=== PATIENT | male | born 1950 | race American Indian/Alaskan Native ===

== ENCOUNTER 2016-08-27 17:04 | Inpatient (IN) | payer MEDICARE ==
[2016-08-27] MEDS ORDERED: VANCOMYCIN/NS 1 GM/250 ML 1 GM/250 ML BAG IV ONE (18:20)
--- NOTE | 2016-08-27 18:23 | Emergency Department Report ---
HPI - General Chief Complaint: Wound/Laceration Time Seen by Provider: 08/27/16 17:51 - HPI HPI: This is a 66-year-old Afro-Burmese male who presents to the emergency department from home by EMS with complaint of a wound to the left lower extremity, to the outside ankle, that has been getting worse and is possibly noninfected. It is more of a chronic issue for him and he was getting wound care for a while but then his was having to clean and change the wound. More recently it started to increase its drainage with malodorous discharge from the wound. He also complains of a one-day history of right lower extremity swelling. He has a history of right below-knee amputation. He also has a past medical history of CVA, dementia, diabetes, hypertension, chronic kidney disease. He has not taken anything for his symptoms prior to presentation. No recent travel or sick contacts at home. ED Past Medical Hx - Past Medical History Previous Medical History?: Yes Hx Hypertension: Yes Hx CVA: Yes Hx Heart Attack/AMI: No Hx Congestive Heart Failure: No Hx Diabetes: Yes Hx Deep Vein Thrombosis: No Hx Pulmonary Embolism: No Hx GERD: No Hx Liver Disease: No Hx Renal Disease: Yes Hx of Cancer: No Hx Sickle Cell Disease: No Hx Arthritis: No Hx Headaches / Migraines: No Hx Seizures: No Hx Kidney Stones: No Hx Psychiatric Treatment: No Hx Asthma: No Hx COPD: No Hx Tuberculosis: No Hx Dementia: Yes Hx HIV: No Additional medical history: Pt has unhealed wound to Left foot, oozing and foul smell, drainage of yellow/green color,. Right BKA - Surgical History Past Surgical History?: Yes Hx Coronary Stent: No Hx Open Heart Surgery: No Hx Pacemaker: No Hx Internal Defibrillator: No Hx Cholecystectomy: No Hx Appendectomy: No Hx Breast Surgery: No - Social History Smoking Status: Former Smoker Substance Use Type: None - Medications Home Medications: Home Medications Medication Instructions Recorded Confirmed Last Taken Type Aspirin [Adult Low Dose Aspirin EC] 81 mg PO QDAY 08/27/16 08/27/16 Unknown History Cholecalciferol (Vitamin D3) 1 cap PO QDAY 08/27/16 08/27/16 Unknown History [Vitamin D3 2,000 unit] Clonidine HCl [Catapres] 0.3 mg PO TID 08/27/16 08/27/16 Unknown History Clopidogrel Bisulfate [Plavix] 75 mg PO QDAY 08/27/16 08/27/16 Unknown History ISOSORBIDE MONOnitrate [Imdur ER] 60 mg PO QAM 08/27/16 08/27/16 Unknown History Insulin NPH Hum/Reg Insulin Hm 30 unit SC BID 08/27/16 08/27/16 Unknown History [HumuLIN 70-30 Vial] Lisinopril [Zestril TAB] 20 mg PO BID 08/27/16 08/27/16 Unknown History Metoprolol [Lopressor TAB] 50 mg PO BID 08/27/16 08/27/16 Unknown History Simvastatin [Zocor TAB] 20 mg PO QDAY 08/27/16 08/27/16 Unknown History amLODIPine [Norvasc] 10 mg PO QDAY 08/27/16 08/27/16 Unknown History hydrALAZINE [Apresoline TAB] 20 mg PO TID 08/27/16 08/27/16 Unknown History ED Review of Systems ROS: Stated complaint: NECROTIC WOUND Other details as noted in HPI Comment: All other systems reviewed and negative Constitutional: denies: chills, fever Eyes: denies: eye pain, eye discharge, vision change ENT: denies: ear pain, throat pain Respiratory: denies: cough, shortness of breath, wheezing Cardiovascular: edema. denies: chest pain, palpitations Gastrointestinal: denies: abdominal pain, nausea, diarrhea Genitourinary: denies: urgency, dysuria Musculoskeletal: joint swelling. denies: back pain Skin: lesions. denies: pruritus Neurological: denies: headache, weakness, paresthesias Physical Exam - Physical Exam Vital Signs: Vital Signs 08/27/16 08/27/16 08/27/16 17:14 17:15 17:16 Pulse Rate 80 81 78 Respiratory 16 12 15 Rate Blood Pressure 141/45 141/45 O2 Sat by Pulse 95 95 97 Oximetry 08/27/16 08/27/16 08/27/16 17:18 17:20 17:22 Pulse Rate 76 79 78 Respiratory 19 13 12 Rate Blood Pressure 141/45 141/45 141/45 O2 Sat by Pulse 96 96 97 Oximetry 08/27/16 08/27/16 08/27/16 17:24 17:26 17:40 Pulse Rate 76 76 Respiratory 17 19 Rate Blood Pressure 141/45 141/45 O2 Sat by Pulse 96 98 99 Oximetry Physical Exam: GENERAL: The patient is well-developed well-nourished. HEENT: Normocephalic. Atraumatic. Extraocular motions are intact. Patient has moist mucous membranes. Pupils equal reactive to light bilaterally. NECK: Supple. Trachea is midline. CHEST/LUNGS: Clear to auscultation. There is no respiratory distress noted. HEART/CARDIOVASCULAR: Regular. There is no tachycardia. There is no gallop rub or murmur. ABDOMEN: Skin is warm and dry. SKIN: There is a moderate sized stage III ulceration to the left lower leg to the posterior foot just inferior and posterior to the lateral malleolus that is about 4-5 inches in diameter. It has some malodorous brownish bruising and/or discharge. No surrounding erythema. Onychomycosis of the toenails. NEURO: The patient is awake, alert, and oriented. The patient is cooperative. The patient has no focal neurologic deficits. The patient has normal speech. MUSCULOSKELETAL: There is no tenderness or deformity. There is a chronic right below-knee amputation. Palpable dorsalis pedis on the left. ED Course Vital Signs 08/27/16 08/27/16 08/27/16 17:14 17:15 17:16 Pulse Rate 80 81 78 Respiratory 16 12 15 Rate Blood Pressure 141/45 141/45 O2 Sat by Pulse 95 95 97 Oximetry 08/27/16 08/27/16 08/27/16 17:18 17:20 17:22 Pulse Rate 76 79 78 Respiratory 19 13 12 Rate Blood Pressure 141/45 141/45 141/45 O2 Sat by Pulse 96 96 97 Oximetry 08/27/16 08/27/16 08/27/16 17:24 17:26 17:40 Pulse Rate 76 76 Respiratory 17 19 Rate Blood Pressure 141/45 141/45 O2 Sat by Pulse 96 98 99 Oximetry - Consultations Consultation #1: I spoke to the orthopedist business applications specialist, Dr. Soto, who has agreed to follow this patient for his suspected osteomyelitis. He does not have any preference for antibiotics and would like the patient admitted to the hospitalist service. 08/28/16 00:04 ED Medical Decision Making - Lab Data Result diagrams: 08/27/16 18:34 08/27/16 18:34 - Radiology Data Radiology results: report reviewed, image reviewed interpreted by me: Chest x-ray does not show any acute process. X-ray of the ankle shows diffuse soft tissue swelling. There is slightly irregular contour in the soft tissues over the lateral aspect of the ankle which could indicate ulceration. The cortex of the lateral aspect of the lateral malleolus is indistinct. Possibility of osteomyelitis is not excluded. CT of the left lower extremity shows soft tissue ulceration adjacent to the lateral malleolus. There is indistinct appearance to the cortex in the lateral malleolus with subtle sclerotic changes in the adjacent bone. This is suspicious for osteomyelitis. Diffuse subcutaneous edema. - Medical Decision Making 66-year-old male with a history of a chronic left lower extremity ulceration and wound who presents when this appears to become infected with malodorous discharge. Patient's labs are mostly unremarkable including no leukocytosis or lactic acidosis. However x-ray imaging of the ankle shows concern for possibility of osteomyelitis to the lateral malleolus. A CT was then done that showed more suspicion for osteomyelitis versus possibility. Patient started on vancomycin and will be admitted to the hospital. Accepted for admission by the hospitalist, Dr. Campbell. - Differential Diagnosis osteomyelitis, diabetic ulcer, cellulitis, sepsis Critical Care Time: No Critical care attestation.: If time is entered above; I have spent that time in minutes in the direct care of this critically ill patient, excluding procedure time. ED Disposition Clinical Impression: Osteomyelitis of ankle Qualifiers: Osteomyelitis type: unspecified type Laterality: left Qualified Code(s): M86.9 - Osteomyelitis, unspecified Lower limb ulcer Qualifiers: Laterality: left Non-pressure ulcer stage: unspecified non-pressure ulcer stage Qualified Code(s): L97.929 - Non-pressure chronic ulcer of unspecified part of left lower leg with unspecified severity Disposition: OP ADMIT IP TO THIS HOSP Is pt being admited?: Yes Condition: Fair Time of Disposition: 00:07
[2016-08-27] MEDS ORDERED: NACL 0.9% 500 ML 500 ML IV ONE (18:32)
[2016-08-27 18:53] LABS: Basophils % (Auto) 0.3 % (0.0-1.8); Eosinophils % (Auto) 1.9 % (0.0-4.3); Hematocrit 25.6 % (35.5-45.6); Hemoglobin 8.3 gm/dl (11.8-15.2); Mean Corpuscular HGB Conc 32 % (32-34); Mean Corpuscular Hemoglobin 27 pg (28-32); Mean Corpuscular Volume 82 fl (84-94); Platelet Count 240 K/mm3 (140-440); Red Blood Count 3.13 M/mm3 (3.65-5.03); Red Cell Distribution Width 15.6 % (13.2-15.2); White Blood Count 7.3 K/mm3 (4.5-11.0)
[2016-08-27 19:25] LABS: Alanine Aminotransferase 17 units/L (7-56); Albumin 2.8 g/dL (3.9-5); Albumin/Globulin Ratio 0.5 %; Alkaline Phosphatase 87 units/L (35-129); Anion Gap 18 mmol/L; BUN/Creatinine Ratio 20.76; Blood Urea Nitrogen 27 mg/dL (9-20); Calcium 8.7 mg/dL (8.4-10.2); Carbon Dioxide 28 mmol/L (22-30); Chloride 98.7 mmol/L (98-107); Glucose 64 mg/dL (75-100); Potassium 3.7 mmol/L (3.6-5.0); Sodium 141 mmol/L (137-145); Total Protein 7.9 g/dL (6.3-8.2)
--- NOTE | 2016-08-27 19:32 | Admit Criteria Form ---
Admission Criteria Documentation: OSTEOMYELITIS Clinical Indications for Admission to Inpatient Care (Place 'X' for any and all applicable criteria) Admission is indicated by 1 or more of the following (1)(2)(3)(4)(5)(6): [ ] I. Significant systemic illness indicated by 2 or more of the following: [ ]a) Core (eg rectal) temperature greater or equal [id number](37.8C) in an adult [ ]b) Oral temperature[A] greater than or equal to 99.3 degrees F ( 37.4 degrees C) in an adult [ ]c) Heart rate greater than 90 beats per minute [ ]d) Respiratory rate greater than 20 breaths per minute or PaCO2 less than 32 mm Hg (4.3 kPa) [ ]e) White blood cell count > 12,000/mm3 (12 x109/L) or < 4000/mm3 ( 4 x109/L) or > 10% band cells [ ] II. Hemodynamic instability [ ] III. Severe pain requiring acute inpatient management [ ] IV. Bacteremia [ ] V. Altered Mental status that is severe or persistent [ ] . Limb-threatening infection [ ] VII. Suspected necrotizing soft tissue infection (e.g., gas in tissue) [ ] VIII.Surgical intervention required (e.g., bone or soft tissue debridement, removal of foreign body, or revascularization procedure) not performable in outpatient or emergency department level of care(7) [X] IX. Appropriate monitoring and therapy (IV antibiotics) cannot be immediately arranged for home or outpatient setting [ ] X. Failure of outpatient treatment [ ] XI. High-risk comorbid condition present including 1 or more of the following: [ ]a) Poorly controlled diabetes (e.g., HbA1c greater than 10% (0.1)) [ ]b) Vascular insufficiency to affected area [ ]c) Cirrhosis [ ]d) Neutropenia [ ]e) Asplenia [ ]f) Immunosuppression (e.g., chronic systemic corticosteroid use) [ ]g) Symptomatic heart failure [ ] XII. Joint involvement (e.g., septic arthritis) suspected [ ] XIII.Vertebral osteomyelitis [ ] XIV. Skull-base osteomyelitis (e.g.,"malignant external otitis")[A](8)(9)(10 ) Extended stay beyond goal length of stay may be needed for(1)(3)(4)(5)(24)(25): [ ]a) Inadequate clinical response to antibiotics (e.g., continued fever, hypotension) [ ]b) Bacteremia [ ]c) Surgical intervention needed (e.g., beyond superficial debridement)(26) [ ]d) Vertebral osteomyelitis with spinal cord compression, abscess formation, or mechanical instability [ ]e) Antibiotic-resistant organism identified (e.g., methicillin-resistant Staphylococcal aureus) [ ]f) Severe concomitant cellulitis [ ]g) Acute metabolic disorder [ ]h) Unstable comorbidities (e.g., heart failure, renal insufficiency, immunosuppressed state)(28) [ ]i) Clinically significant malnutrition [ ]j) Acute renal failure The original [facility] [employer] content created by [facility] has been revised. The portions of the content which have been revised are identified through the use of italic text or in bold, and [facility] has neither reviewed nor approved the modified material. All other unmodified content is copyright [facility].Edition 2016. Admission Criteria Met: Yes
--- NOTE | 2016-08-27 19:45 | XRay Report ---
FINAL REPORT EXAM: XR CHEST 1V AP HISTORY: possible Sepsis TECHNIQUE: Single-view chest PRIORS: None. FINDINGS: The left costophrenic angle is cropped from the topography of the image.No focal consolidations are seen in the lungs.The cardiomediastinal silhouette is within normal limits for size and contour. No acute osseous abnormality is identified. IMPRESSION: 1. No definite radiographic evidence of acute cardiopulmonary disease. 2. No focal infiltrate is identified.
[2016-08-27 19:58] LABS: INR 1.21 (0.87-1.13)
--- NOTE | 2016-08-27 20:01 | XRay Report ---
FINAL REPORT EXAM: XR ANKLE 2V LT HISTORY: ankle pain, infection, skin wound TECHNIQUE: Right ankle two views 2 images PRIORS: None. FINDINGS: Sequelae from 1st transmetatarsal amputation are noted. Metatarsals and toes are incompletely evaluated this study. No acute fracture is identified. Traction enthesophyte is seen arising from the plantar aspect of the calcaneus. The cortex of the lateral aspect of the lateral malleolus is slightly indistinct. There is diffuse soft tissue swelling in the leg and foot. Vascular calcifications are noted. There is slightly irregular contour in the soft tissues over lateral aspect of the ankle. IMPRESSION: 1. Diffuse soft tissue swelling is noted. 2. There is slightly irregular contour in the soft tissues over the lateral aspect of the ankle which could indicate ulceration given the history provided. 3. The cortex of the lateral aspect of the lateral malleolus is indistinct. Possibility of osteomyelitis is not excluded. The patient can be further assessed with 3 phase nuclear medicine bone scan or MRI if indicated.
--- NOTE | 2016-08-27 21:27 | Cat Scan Report ---
FINAL REPORT EXAM: CT LOWER EXTREMITY LT WO CON HISTORY: osteomyelitis of foot/ankle? TECHNIQUE: Noncontrast serial axial images through the left foot and ankle with coronal and sagittal reconstruction PRIORS: Left ankle radiograph from 08/27/2016. FINDINGS: There is diffuse soft tissue swelling consistent with subcutaneous edema in left leg and left foot. Vascular calcifications are noted. Sequelae from transmetatarsal amputation are seen in the 1st ray. No acute fracture is identified. There is evidence of ulceration in the soft tissues lateral to the lateral malleolus. There is small amount of gas in the soft tissues extending to the level of the distal fibula. The cortex in this region is indistinct with subtle sclerotic change adjacent bone. This can be seen for example series 200, image 129. IMPRESSION: 1. Soft tissue ulceration is noted adjacent to the lateral malleolus. 2. There is indistinct appearance to the cortex in the lateral malleolus with subtle sclerotic change in the adjacent bone. This is suspicious for osteomyelitis. The patient can be further assessed with 3 phase nuclear medicine bone scan or MRI if indicated. 3. Diffuse subcutaneous edema is noted.
[2016-08-27] MEDS ORDERED: TYLENOL PO PRN (23:39)
[2016-08-27] MEDS ORDERED: D50W (25GM) IV PRN (23:39)
[2016-08-27] MEDS ORDERED: ZOFRAN IV PRN (23:39)
[2016-08-27] MEDS ORDERED: MILK OF MAGNESIA PO PRN (23:39)
[2016-08-27] MEDS ORDERED: DULCOLAX PR PRN (23:39)
[2016-08-27] MEDS ORDERED: PERCOCET 5/325 PO PRN (23:39)
--- NOTE | 2016-08-27 23:42 | History and Physical Report ---
History of Present Illness Date of examination: 08/27/16 History of present illness: 66-year-old man with history of hypertension, diabetes who has a chronic left ankle wound since 2016 comes emergency room because he is experiencing increased pain, increased drainage from the wound Patient denies chest pain, palpitation, shortness of breath, cough, abdominal pain, hematochezia, dysuria, frequency, focal weakness, dysarthria, fever chills , polydipsia polyuria, hot or cold intolerance, easy bruisability, or rash or bleeding from mucosal membrane, rhinorrhea, epistaxis, earache, tinnitus, blurry vision, eye discharge, anxiety, depression. Other review of systems negative PAST SURGICAL HISTORY: Right BKA, left great toe amputation SOCIAL HISTORY:Denies alcohol, tobacco, drugs FAMILY HISTORY: Diabetes Medications and Allergies Allergies Allergy/AdvReac Type Severity Reaction Status Date / Time shellfish derived Allergy Swelling Verified 12/11/13 10:40 Home Medications Medication Instructions Recorded Confirmed Last Taken Type Aspirin [Adult Low Dose Aspirin EC] 81 mg PO QDAY 08/27/16 08/27/16 Unknown History Cholecalciferol (Vitamin D3) 1 cap PO QDAY 08/27/16 08/27/16 Unknown History [Vitamin D3 2,000 unit] Clonidine HCl [Catapres] 0.3 mg PO TID 08/27/16 08/27/16 Unknown History Clopidogrel Bisulfate [Plavix] 75 mg PO QDAY 08/27/16 08/27/16 Unknown History ISOSORBIDE MONOnitrate [Imdur ER] 60 mg PO QAM 08/27/16 08/27/16 Unknown History Insulin NPH Hum/Reg Insulin Hm 30 unit SC BID 08/27/16 08/27/16 Unknown History [HumuLIN 70-30 Vial] Lisinopril [Zestril TAB] 20 mg PO BID 08/27/16 08/27/16 Unknown History Metoprolol [Lopressor TAB] 50 mg PO BID 08/27/16 08/27/16 Unknown History Simvastatin [Zocor TAB] 20 mg PO QDAY 08/27/16 08/27/16 Unknown History amLODIPine [Norvasc] 10 mg PO QDAY 08/27/16 08/27/16 Unknown History hydrALAZINE [Apresoline TAB] 20 mg PO TID 08/27/16 08/27/16 Unknown History Exam - Physical Exam Narrative exam: Gen. appearance: Patient lying in bed, no apparent distress HEENT: Normocephalic, atraumatic, pupils equally round and reactive to light, extraocular movement intact, and no sclericterus,. No JVD or thyromegaly or nodule,neck supple, no carotid bruit ,mucous membranes moist, no exudate or erythema Heart: S1, S2, regular rate and rhythm Lungs: Clear to auscultation bilaterally, breathing comfortable Abdomen: Positive bowel sounds, nontender, nondistended, no organomegaly Extremity: Left ankle wound, yellow fibrinous tissue, no erythema, tender to touch , + edema,no cyanosis, clubbing Skin: No rash, nodules, warm, dry Neuro: Oriented 3, cranial nerves II-12 intact, speech is fluent, motor and sensory intact - Constitutional Vitals: Temp Pulse Resp BP Pulse Ox 79 15 195/92 93 08/27/16 19:30 08/27/16 19:30 08/27/16 22:30 08/27/16 22:30 Results - Labs CBC & Chem 7: 08/29/16 13:32 08/28/16 06:46 Labs: Abnormal lab results 08/27/16 08/27/16 08/27/16 Range/Units 18:34 18:34 18:34 RBC 3.13 L (3.65-5.03) M/mm3 Hgb 8.3 L (11.8-15.2) gm/dl Hct 25.6 L (35.5-45.6) % MCV 82 L (84-94) fl MCH 27 L (28-32) pg RDW 15.6 H (13.2-15.2) % Lymph % (Auto) 9.7 L (13.4-35.0) % [place] % (Auto) 7.7 H (0.0-7.3) % Lymph # 0.7 L (1.2-5.4) K/mm3 Seg Neutrophils % 80.4 H (40.0-70.0) % PT (12.2-14.9) Sec. INR (0.87-1.13) BUN 27 H (9-20) mg/dL Glucose 64 L (75-100) mg/dL Lactic Acid 0.60 L (0.7-2.0) mmol/L Albumin 2.8 L (3.9-5) g/dL 08/27/16 Range/Units 19:24 RBC (3.65-5.03) M/mm3 Hgb (11.8-15.2) gm/dl Hct (35.5-45.6) % MCV (84-94) fl MCH (28-32) pg RDW (13.2-15.2) % Lymph % (Auto) (13.4-35.0) % [place] % (Auto) (0.0-7.3) % Lymph # (1.2-5.4) K/mm3 Seg Neutrophils % (40.0-70.0) % PT 15.2 H (12.2-14.9) Sec. INR 1.21 H (0.87-1.13) BUN (9-20) mg/dL Glucose (75-100) mg/dL Lactic Acid (0.7-2.0) mmol/L Albumin (3.9-5) g/dL - Imaging and Cardiology Chest x-ray: image reviewed Assessment and Plan Lower extremity CT, ankle x-ray reviewed Acute osteomyelitis Hypertension malignant Diabetes type 2 Admit to medicine Start IV vancomycin, consult orthopedic Start IV hydralazine, first dose now Check fingersticks initiate insulin sliding scale Start pain medication, DVT prophylaxis
[2016-08-28] MEDS ORDERED: APRESOLINE IV ONE (00:02)
[2016-08-28] MEDS ORDERED: D50W (25GM) IV PRN (00:06)
[2016-08-28] MEDS: APRESOLINE IV PRN (00:16)
[2016-08-28] MEDS ORDERED: VANCOMYCIN 1,750 MG in NACL 0.9% 500 ML 500 ML IV SCH (02:00)
[2016-08-28 07:36] LABS: Basophils % (Auto) 0.4 % (0.0-1.8); Eosinophils % (Auto) 2.3 % (0.0-4.3); Hematocrit 23.1 % (35.5-45.6); Hemoglobin 7.5 gm/dl (11.8-15.2); Mean Corpuscular HGB Conc 32 % (32-34); Mean Corpuscular Hemoglobin 27 pg (28-32); Mean Corpuscular Volume 82 fl (84-94); Platelet Count 221 K/mm3 (140-440); Red Blood Count 2.82 M/mm3 (3.65-5.03); Red Cell Distribution Width 15.8 % (13.2-15.2); White Blood Count 6.8 K/mm3 (4.5-11.0)
[2016-08-28 07:54] LABS: Anion Gap 14 mmol/L; BUN/Creatinine Ratio 18.46; Blood Urea Nitrogen 24 mg/dL (9-20); Calcium 7.8 mg/dL (8.4-10.2); Carbon Dioxide 27 mmol/L (22-30); Chloride 101.4 mmol/L (98-107); Glucose 153 mg/dL (75-100); Potassium 3.6 mmol/L (3.6-5.0); Sodium 139 mmol/L (137-145)
[2016-08-28] MEDS: CATAPRES PO SCH ×4 (08:10→14:09)
[2016-08-28] MEDS: NOVOLOG SUB-Q SCH ×3 (08:11→17:14)
--- NOTE | 2016-08-28 09:51 | Consultation ---
History of Present Illness - HPI Consult date: 08/28/16 Consult reason: joint pain History of present illness: 66-year-old man with history of hypertension, diabetes who has a chronic left ankle wound since 2016 comes emergency room because he is experiencing increased pain, increased drainage from the wound Medications and Allergies Allergies Allergy/AdvReac Type Severity Reaction Status Date / Time shellfish derived Allergy Swelling Verified 12/11/13 10:40 Home Medications Medication Instructions Recorded Confirmed Last Taken Type Aspirin [Adult Low Dose Aspirin EC] 81 mg PO QDAY 08/27/16 08/27/16 Unknown History Cholecalciferol (Vitamin D3) 1 cap PO QDAY 08/27/16 08/27/16 Unknown History [Vitamin D3 2,000 unit] Clonidine HCl [Catapres] 0.3 mg PO TID 08/27/16 08/27/16 Unknown History Clopidogrel Bisulfate [Plavix] 75 mg PO QDAY 08/27/16 08/27/16 Unknown History ISOSORBIDE MONOnitrate [Imdur ER] 60 mg PO QAM 08/27/16 08/27/16 Unknown History Insulin NPH Hum/Reg Insulin Hm 30 unit SC BID 08/27/16 08/27/16 Unknown History [HumuLIN 70-30 Vial] Lisinopril [Zestril TAB] 20 mg PO BID 08/27/16 08/27/16 Unknown History Metoprolol [Lopressor TAB] 50 mg PO BID 08/27/16 08/27/16 Unknown History Simvastatin [Zocor TAB] 20 mg PO QDAY 08/27/16 08/27/16 Unknown History amLODIPine [Norvasc] 10 mg PO QDAY 08/27/16 08/27/16 Unknown History hydrALAZINE [Apresoline TAB] 20 mg PO TID 08/27/16 08/27/16 Unknown History Active Meds: Active Medications Acetaminophen (Tylenol) 650 mg PO Q4H PRN PRN Reason: Pain MILD(1-3)/Fever >100.5/TUCKER Amlodipine Besylate (Norvasc) 10 mg PO QDAY LINDA Aspirin (Halfprin Ec) 81 mg PO QDAY LINDA Bisacodyl (Dulcolax) 10 mg LA QDAY PRN PRN Reason: Constipation unrelieved by MOM Cholecalciferol (Vitamin D3) 2,000 unit PO QDAY LINDA Clonidine HCl (Catapres) 0.2 mg PO TID [facility] Last Admin: 08/28/16 08:10 Dose: 0.2 mg Clonidine HCl (Catapres) 0.1 mg PO TID [facility] Last Admin: 08/28/16 08:10 Dose: 0.1 mg Clopidogrel Bisulfate (Plavix) 75 mg PO QDAY [facility] Dextrose (D50w (25gm)) 50 ml IV PRN PRN PRN Reason: Hypoglycemia Dextrose (D50w (25gm)) 50 ml IV PRN PRN PRN Reason: Hypoglycemia Heparin Sodium (Porcine) (Heparin) 5,000 unit SUB-Q Q12HR [facility] Hydralazine HCl (Apresoline) 5 mg IV Q6H PRN PRN Reason: Hypertension Vancomycin HCl 1,500 mg/ (Sodium Chloride) 530 mls @ 333.333 mls/hr IV Q12H [facility] Insulin Aspart (Novolog) 0 units SUB-Q ACHS [facility] PRN Reason: Protocol Last Admin: 08/28/16 08:11 Dose: 3 units Insulin Human Isoph/Insulin Regular (Novolin 70/30) 30 unit SUB-Q BIDDIAB [facility] Last Admin: 08/28/16 08:10 Dose: 30 unit Isosorbide Mononitrate (Imdur) 60 mg PO QAM [facility] Lisinopril (Zestril) 20 mg PO BID [facility] Magnesium Hydroxide (Milk Of Magnesia) 30 ml PO Q4H PRN PRN Reason: Constipation Ondansetron HCl (Zofran) 4 mg IV Q8H PRN PRN Reason: N/V unrelieved by Reglan Oxycodone/Acetaminophen (Percocet 5/325) 1 tab PO Q6H PRN PRN Reason: Pain, Moderate (4-6) Simvastatin (Zocor) 20 mg PO QDAY [facility] Physical Examination - Physical exam Narrative exam: On physical examination we have a well-nourished well-developed male in no obvious distress, he has a well-healed right BKA stump with no evidence of infection however there is a foul-smelling odor with necrotic soft tissue along the lateral malleolus there is moderate drainage the foot itself shows chronic changes with loss of the great toe from prior surgery no palpable pulses felt on examination Assessment and Plan Chronic open wound left ankle Would recommend vascular studies such as arterial Doppler to rule out insufficiency prior to definitive surgery which may include a below-knee amputation
[2016-08-28] MEDS ORDERED: PLAVIX PO SCH (10:00)
[2016-08-28] MEDS ORDERED: VANCOMYCIN/NS 1 GM/250 ML 1 GM/250 ML BAG IV SCH (10:00)
[2016-08-28] MEDS ORDERED: LOVENOX SUB-Q SCH (10:00)
[2016-08-28] MEDS ORDERED: HALFPRIN EC PO SCH (10:00)
[2016-08-28] MEDS: IMDUR PO SCH (12:09)
[2016-08-28] MEDS: NORVASC PO SCH (12:10)
[2016-08-28] MEDS: ZESTRIL PO SCH (12:10)
[2016-08-28] MEDS: VITAMIN D3 PO SCH (12:10)
[2016-08-28] MEDS: ZOCOR PO SCH (12:11)
[2016-08-28] MEDS: VANCOMYCIN 1,500 MG in NACL 0.9% 500 ML 500 ML IV SCH (14:05)
--- NOTE | 2016-08-28 17:57 | Progress Note ---
Assessment and Plan Assessment and plan: -left foot dm ulcer w/ cellulitis: consulted ortho -htn -dm History Interval history: Folloe up left foot infection. No cp, sob Hospitalist Physical - Physical exam Narrative exam: wdwn nad a/o rrr cta b abd soft ntnd gbs ext, foul smelling left ankle ulcer - Constitutional Vitals: Temp Pulse Resp BP Pulse Ox 98.3 F 82 20 108/58 93 08/28/16 08:00 08/28/16 08:00 08/28/16 08:00 08/28/16 14:09 08/28/16 10:00 Results - Labs CBC & Chem 7: 08/28/16 06:46 08/28/16 06:46 Labs: Laboratory Last Values WBC 6.8 K/mm3 (4.5-11.0) 08/28/16 06:46 RBC 2.82 M/mm3 (3.65-5.03) L 08/28/16 06:46 Hgb 7.5 gm/dl (11.8-15.2) L 08/28/16 06:46 Hct 23.1 % (35.5-45.6) L 08/28/16 06:46 MCV 82 fl (84-94) L 08/28/16 06:46 MCH 27 pg (28-32) L 08/28/16 06:46 MCHC 32 % (32-34) 08/28/16 06:46 RDW 15.8 % (13.2-15.2) H 08/28/16 06:46 Plt Count 221 K/mm3 (140-440) 08/28/16 06:46 Lymph % (Auto) 12.7 % (13.4-35.0) L 08/28/16 06:46 [place] % (Auto) 8.2 % (0.0-7.3) H 08/28/16 06:46 Eos % (Auto) 2.3 % (0.0-4.3) 08/28/16 06:46 Baso % (Auto) 0.4 % (0.0-1.8) 08/28/16 06:46 Lymph # 0.9 K/mm3 (1.2-5.4) L 08/28/16 06:46 Evans # 0.6 K/mm3 (0.0-0.8) 08/28/16 06:46 Eos # 0.2 K/mm3 (0.0-0.4) 08/28/16 06:46 Baso # 0.0 K/mm3 (0.0-0.1) 08/28/16 06:46 Seg Neutrophils % 76.4 % (40.0-70.0) H 08/28/16 06:46 Seg Neutrophils # 5.2 K/mm3 (1.8-7.7) 08/28/16 06:46 PT 15.2 Sec. (12.2-14.9) H 08/27/16 19:24 INR 1.21 (0.87-1.13) H 08/27/16 19:24 VBG pH 7.393 (7.320-7.420) 08/27/16 20:04 Sodium 139 mmol/L (137-145) 08/28/16 06:46 Potassium 3.6 mmol/L (3.6-5.0) 08/28/16 06:46 Chloride 101.4 mmol/L (98-107) 08/28/16 06:46 Carbon Dioxide 27 mmol/L (22-30) 08/28/16 06:46 Anion Gap 14 mmol/L 08/28/16 06:46 BUN 24 mg/dL (9-20) H 08/28/16 06:46 Creatinine 1.3 mg/dL (0.8-1.5) 08/28/16 06:46 Estimated GFR > 60 ml/min 08/28/16 06:46 BUN/Creatinine Ratio 18.46 % 08/28/16 06:46 Glucose 153 mg/dL (75-100) H 08/28/16 06:46 POC Glucose 159 (70-105) H 08/28/16 16:54 Lactic Acid 0.70 mmol/L (0.7-2.0) 08/27/16 21:20 Calcium 7.8 mg/dL (8.4-10.2) L 08/28/16 06:46 Total Bilirubin 0.30 mg/dL (0.1-1.2) 08/27/16 18:34 AST 39 units/L (5-40) 08/27/16 18:34 ALT 17 units/L (7-56) 08/27/16 18:34 Alkaline Phosphatase 87 units/L (35-129) 08/27/16 18:34 Total Protein 7.9 g/dL (6.3-8.2) 08/27/16 18:34 Albumin 2.8 g/dL (3.9-5) L 08/27/16 18:34 Albumin/Globulin Ratio 0.5 % 08/27/16 18:34
[2016-08-29] MEDS: CATAPRES PO SCH ×6 (01:01→14:00)
[2016-08-29] MEDS: ZESTRIL PO SCH ×2 (01:03→14:31)
[2016-08-29] MEDS: NOVOLOG SUB-Q SCH ×4 (01:41→17:40)
[2016-08-29] MEDS: VANCOMYCIN 1,500 MG in NACL 0.9% 500 ML 500 ML IV SCH ×2 (04:35→14:42)
[2016-08-29] MEDS ORDERED: ZOFRAN IV ONE (05:53)
[2016-08-29] MEDS ORDERED: ZOFRAN IV PRN (05:55)
--- NOTE | 2016-08-29 08:47 | Progress Note ---
Assessment and Plan Assessment and plan: 66-year-old man with history of hypertension, diabetes, right BKA, who has a chronic left ankle wound since 2016 comes emergency room because he is experiencing increased pain, increased drainage from the wound admitted with diabetic ulcer and noted osteomylitis. * Diabetic wound infection with osteomylitis- Continue Vancomycin, pharmacy to dose. Ortho input noted. Will obtain ID consult. also check dopper us of lower ext. wound care consult * Osteomylitis of left lower ext-continue vancomycin. will need possible surgical cure * Hypertensive urgency- continue current therapy, better controlled. Hydralazin prn * Diabetes mellitus- continue insulin sliding scale coverage. start on D5 NS, pt NPO at this time due to possible GI bleed * Anemia- possible GI bleed. stop plavix and asa, unsure why patient is taking, he denies stroke, awaiting call back from family, start on PPI drip. Monitor H.H. consult GI. * S/P Rt lower ext BKA. * HX OF CVA-restart ASA and plavix once stable from GI stand point. 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 * Plan of care discussed with patient in detail History Interval history: Patient seen and examined, in no acute distress. Nursing staff reports patient had coffee ground emesis this morning, the patient reports earlier nausea, now resolved. no other adverse event reported. Hospitalist Physical - Physical exam Narrative exam: VITAL SIGNS: Reviewed. GENERAL: The patient appeared well nourished and normally developed. Vital signs as documented. HEAD: No signs of head trauma. EYES: Pupils are equal. Extraocular motions intact. EARS: Hearing grossly intact. MOUTH: Oropharynx is normal. NECK: No adenopathy, no JVD. CHEST: Chest with clear breath sounds bilaterally. No wheezes, rales, or rhonchi. CARDIAC: Regular rate and rhythm. S1 and S2, without murmurs, gallops, or rubs. VASCULAR: No Edema. ABDOMEN: Soft, without detectable tenderness. No sign of distention. No rebound or guarding, and no masses palpated. Bowel Sounds normal. MUSCULOSKELETAL: Right BKA, left lateral malleus necrotic tissue with foul- smelling odor. Chronic changes with loss of great toe. Decreased pulses. NEUROLOGIC EXAM: Alert and oriented x 3. No focal sensory. left lower ext weakness, ambulates with a wheelchair. Speech normal. Follows commands. PSYCHIATRIC: Mood normal. SKIN: necrotic lesion, lateral left malleus - Constitutional Vitals: Temp Pulse Resp BP Pulse Ox 98.2 F 79 20 157/76 97 08/29/16 07:38 08/29/16 07:38 08/29/16 07:38 08/29/16 07:38 08/29/16 00:00 Results - Labs CBC & Chem 7: 08/29/16 13:32 08/28/16 06:46 Labs: Laboratory Last Values WBC 6.8 K/mm3 (4.5-11.0) 08/28/16 06:46 RBC 2.82 M/mm3 (3.65-5.03) L 08/28/16 06:46 Hgb 7.5 gm/dl (11.8-15.2) L 08/28/16 06:46 Hct 23.1 % (35.5-45.6) L 08/28/16 06:46 MCV 82 fl (84-94) L 08/28/16 06:46 MCH 27 pg (28-32) L 08/28/16 06:46 MCHC 32 % (32-34) 08/28/16 06:46 RDW 15.8 % (13.2-15.2) H 08/28/16 06:46 Plt Count 221 K/mm3 (140-440) 08/28/16 06:46 Lymph % (Auto) 12.7 % (13.4-35.0) L 08/28/16 06:46 [place] % (Auto) 8.2 % (0.0-7.3) H 08/28/16 06:46 Eos % (Auto) 2.3 % (0.0-4.3) 08/28/16 06:46 Baso % (Auto) 0.4 % (0.0-1.8) 08/28/16 06:46 Lymph # 0.9 K/mm3 (1.2-5.4) L 08/28/16 06:46 [place] # 0.6 K/mm3 (0.0-0.8) 08/28/16 06:46 Eos # 0.2 K/mm3 (0.0-0.4) 08/28/16 06:46 Baso # 0.0 K/mm3 (0.0-0.1) 08/28/16 06:46 Seg Neutrophils % 76.4 % (40.0-70.0) H 08/28/16 06:46 Seg Neutrophils # 5.2 K/mm3 (1.8-7.7) 08/28/16 06:46 PT 15.2 Sec. (12.2-14.9) H 08/27/16 19:24 INR 1.21 (0.87-1.13) H 08/27/16 19:24 VBG pH 7.393 (7.320-7.420) 08/27/16 20:04 Sodium 139 mmol/L (137-145) 08/28/16 06:46 Potassium 3.6 mmol/L (3.6-5.0) 08/28/16 06:46 Chloride 101.4 mmol/L (98-107) 08/28/16 06:46 Carbon Dioxide 27 mmol/L (22-30) 08/28/16 06:46 Anion Gap 14 mmol/L 08/28/16 06:46 BUN 24 mg/dL (9-20) H 08/28/16 06:46 Creatinine 1.3 mg/dL (0.8-1.5) 08/28/16 06:46 Estimated GFR > 60 ml/min 08/28/16 06:46 BUN/Creatinine Ratio 18.46 % 08/28/16 06:46 Glucose 153 mg/dL (75-100) H 08/28/16 06:46 POC Glucose 75 (70-105) 08/29/16 06:08 Lactic Acid 0.70 mmol/L (0.7-2.0) 08/27/16 21:20 Calcium 7.8 mg/dL (8.4-10.2) L 08/28/16 06:46 Total Bilirubin 0.30 mg/dL (0.1-1.2) 08/27/16 18:34 AST 39 units/L (5-40) 08/27/16 18:34 ALT 17 units/L (7-56) 08/27/16 18:34 Alkaline Phosphatase 87 units/L (35-129) 08/27/16 18:34 Total Protein 7.9 g/dL (6.3-8.2) 08/27/16 18:34 Albumin 2.8 g/dL (3.9-5) L 08/27/16 18:34 Albumin/Globulin Ratio 0.5 % 08/27/16 18:34 - Imaging and Cardiology Venous US: pending
[2016-08-29] MEDS ORDERED: VANCOMYCIN PHARMACY TO DOSE IV SCH (09:00)
[2016-08-29] MEDS ORDERED: PROTONIX 80 MG in NACL 0.9% 100 ML IV SCH (10:00)
[2016-08-29] MEDS ORDERED: COUMADIN ONE (13:17)
[2016-08-29 14:06] LABS: Hematocrit 23.5 % (35.5-45.6); Hemoglobin 7.6 gm/dl (11.8-15.2)
[2016-08-29] MEDS: VITAMIN D3 PO SCH (14:30)
[2016-08-29] MEDS: ZOCOR PO SCH (14:31)
[2016-08-29] MEDS: NORVASC PO SCH (14:31)
[2016-08-29] MEDS: IMDUR PO SCH (14:31)
--- NOTE | 2016-08-29 15:39 | Consultation ---
History of Present Illness - Reason for Consult Consult date: 08/29/16 Left Ankle Wound Infection - History of Present Illness Mr. Preciado is a 66-year-old man with a history of diabetes mellitus, PVD and a chronic left ankle wound for ~ 2 years. He has undergone treatment at the wound clinic previously. He presented for evaluation of increased pain and drainage locally from the site. A plain film xray of his left ankle showed irregular contours laterally consistent with the ulcer but equivocal evidence of osteomyelitis. A CT left leg showed similar findings. The ulcer wound was culture and Gram stain shows mixed fox with a predominance of Gram negative rods, but no PMNs. He is prescribed empiric Vancomycin. ID consultation is requested for additional treatment recommendations. Past History Past Medical History: diabetes, hypertension, stroke, other (peripheral vascular disease) Past Surgical History: Other (right BKA) Social history: , lives with family Family history: hypertension Medications and Allergies Allergies Allergy/AdvReac Type Severity Reaction Status Date / Time shellfish derived Allergy Swelling Verified 12/11/13 10:40 Home Medications Medication Instructions Recorded Confirmed Last Taken Type Aspirin [Adult Low Dose Aspirin EC] 81 mg PO QDAY 08/27/16 08/27/16 Unknown History Cholecalciferol (Vitamin D3) 1 cap PO QDAY 08/27/16 08/27/16 Unknown History [Vitamin D3 2,000 unit] Clonidine HCl [Catapres] 0.3 mg PO TID 08/27/16 08/27/16 Unknown History Clopidogrel Bisulfate [Plavix] 75 mg PO QDAY 08/27/16 08/27/16 Unknown History ISOSORBIDE MONOnitrate [Imdur ER] 60 mg PO QAM 08/27/16 08/27/16 Unknown History Insulin NPH Hum/Reg Insulin Hm 30 unit SC BID 08/27/16 08/27/16 Unknown History [HumuLIN 70-30 Vial] Lisinopril [Zestril TAB] 20 mg PO BID 08/27/16 08/27/16 Unknown History Metoprolol [Lopressor TAB] 50 mg PO BID 08/27/16 08/27/16 Unknown History Simvastatin [Zocor TAB] 20 mg PO QDAY 08/27/16 08/27/16 Unknown History amLODIPine [Norvasc] 10 mg PO QDAY 08/27/16 08/27/16 Unknown History hydrALAZINE [Apresoline TAB] 20 mg PO TID 08/27/16 08/27/16 Unknown History Active Meds: Active Medications Acetaminophen (Tylenol) 650 mg PO Q4H PRN PRN Reason: Pain MILD(1-3)/Fever >100.5/TUCKER Amlodipine Besylate (Norvasc) 10 mg PO QDAY [facility] Last Admin: 08/29/16 14:31 Dose: 10 mg Bisacodyl (Dulcolax) 10 mg [place] QDAY PRN PRN Reason: Constipation unrelieved by MOM Cholecalciferol (Vitamin D3) 2,000 unit PO QDAY [facility] Last Admin: 08/29/16 14:30 Dose: 2,000 unit Clonidine HCl (Catapres) 0.2 mg PO TID [facility] Last Admin: 08/29/16 09:21 Dose: 0.2 mg Clonidine HCl (Catapres) 0.1 mg PO TID [facility] Last Admin: 08/29/16 09:21 Dose: 0.1 mg Dextrose (D50w (25gm)) 50 ml IV PRN PRN PRN Reason: Hypoglycemia Dextrose (D50w (25gm)) 50 ml IV PRN PRN PRN Reason: Hypoglycemia Hydralazine HCl (Apresoline) 5 mg IV Q6H PRN PRN Reason: Hypertension Vancomycin HCl 1,500 mg/ (Sodium Chloride) 530 mls @ 333.333 mls/hr IV Q12H [facility] Last Admin: 08/29/16 14:42 Dose: 333.333 mls/hr Pantoprazole Sodium 80 mg/ (Sodium Chloride) 100 mls @ 10 mls/hr IV Q10H [facility] PRN Reason: 8 MG/HR Last Admin: 08/29/16 12:29 Dose: 8 mg/hr, 10 mls/hr Insulin Aspart (Novolog) 0 units SUB-Q ACHS [facility] PRN Reason: Protocol Last Admin: 08/29/16 12:37 Dose: Not Given Insulin Human Isoph/Insulin Regular (Novolin 70/30) 30 unit SUB-Q BIDDIAB [facility] Last Admin: 08/29/16 09:22 Dose: Not Given Isosorbide Mononitrate (Imdur) 60 mg PO QAM [facility] Last Admin: 08/29/16 14:31 Dose: 60 mg Lisinopril (Zestril) 20 mg PO BID [facility] Last Admin: 08/29/16 14:31 Dose: 20 mg Magnesium Hydroxide (Milk Of Magnesia) 30 ml PO Q4H PRN PRN Reason: Constipation Ondansetron HCl (Zofran) 4 mg IV Q6H PRN PRN Reason: Nausea And Vomiting Oxycodone/Acetaminophen (Percocet 5/325) 1 tab PO Q6H PRN PRN Reason: Pain, Moderate (4-6) Simvastatin (Zocor) 20 mg PO QDAY [facility] Last Admin: 08/29/16 14:31 Dose: 20 mg Vancomycin HCl (Vancomycin Pharmacy To Dose) 1 each IV PKCONSULT [facility] PRN Reason: Protocol Review of Systems All systems: negative Constitutional: no chills, no sweats, no poor appetite Respiratory: no cough, no shortness of breath Gastrointestinal: no abdominal pain, no nausea, no vomiting, no diarrhea Musculoskeletal: shooting leg pain, other (increased ankle wound drainage) Integumentary: sores, darkening of skin Physical Examination - Constitutional Vitals: Vital Signs Temp Pulse Resp BP Pulse Ox 98.2 F 79 20 154/60 97 08/29/16 07:38 08/29/16 07:38 08/29/16 07:38 08/29/16 14:31 08/29/16 10:00 Temperature -Last 24 Hours Temperature 98.2 F Temperature 98.6 F General appearance: Present: no acute distress (sister present), well-nourished - Neck Neck: Present: supple - Respiratory Respiratory effort: normal Respiratory: bilateral: CTA - Cardiovascular Rhythm: regular (slightly irregular) Heart Sounds: Present: S1 & S2 - Extremities Extremity abnormal: edema (left leg; s/p right BKA), other (left foot s/p 1st toe amputation, chronic venous stasis skin changes with a large ulcer at the lateral malleolus and areas of exposed bone, foul-smelling serous drainage from the wound, no crepitus) - Abdominal General gastrointestinal: Present: soft, non-distended - Integumentary Integumentary: Absent: rash - Psychiatric Psychiatric: appropriate mood/affect - Neurologic Neurologic: moves all extremities Results - Labs CBC & Chem 7: 08/29/16 13:32 08/28/16 06:46 Labs: Abnormal lab results 08/28/16 08/28/16 08/29/16 Range/Units 16:54 21:39 13:32 Hgb 7.6 L (11.8-15.2) gm/dl Hct 23.5 L (35.5-45.6) % POC Glucose 159 H 69 L (70-105) Microbiology 08/27/16 19:24 Peripheral/Venous Blood Culture - Preliminary NO GROWTH AFTER 24 HOURS 08/27/16 19:24 Peripheral/Venous Blood Culture - Preliminary NO GROWTH AFTER 24 HOURS 08/27/16 20:04 Peripheral/Venous Blood Culture - Preliminary NO GROWTH AFTER 24 HOURS 08/27/16 18:34 Peripheral/Venous Blood Culture - Preliminary NO GROWTH AFTER 24 HOURS 08/27/16 18:40 Foot - Left Wound Culture - Preliminary Gram Negative Hieu - Imaging and Cardiology Chest x-ray: report reviewed (no acute cardiopulmonary findings) Assessment and Plan - Patient Problems (1) Osteomyelitis of ankle Current Visit: Yes Status: Acute Qualifiers: Osteomyelitis type: unspecified type Laterality: left Qualified Code(s): M86.9 - Osteomyelitis, unspecified Plan to address problem: 1. Osteomyelitis is expected as there are areas of exposed bone. I am not confident that the wound/ infection can be medically managed alone. Agree with vascular assessment to determine the extent of the patient's vascular disease and any possibility of revascularization. 2. Will add Ceftriaxone and topical Triple antibiotic to the patient's current regimen pending further culture data. (2) Lower limb ulcer Current Visit: Yes Status: Acute Qualifiers: Laterality: left Non-pressure ulcer stage: unspecified non-pressure ulcer stage Qualified Code(s): L97.929 - Non-pressure chronic ulcer of unspecified part of left lower leg with unspecified severity Plan to address problem: Expect that this has resulted from the patient's peripheral vascular disease. Agree with vascular assessment in addition to antibiotics for now.
--- NOTE | 2016-08-29 16:36 | Consultation ---
History of Present Illness - Reason for Consult Consult date: 08/29/16 Coffee ground emesis - History of Present Illness See dictated note. Medications and Allergies Allergies Allergy/AdvReac Type Severity Reaction Status Date / Time shellfish derived Allergy Swelling Verified 12/11/13 10:40 Home Medications Medication Instructions Recorded Confirmed Last Taken Type Aspirin [Adult Low Dose Aspirin EC] 81 mg PO QDAY 08/27/16 08/27/16 Unknown History Cholecalciferol (Vitamin D3) 1 cap PO QDAY 08/27/16 08/27/16 Unknown History [Vitamin D3 2,000 unit] Clonidine HCl [Catapres] 0.3 mg PO TID 08/27/16 08/27/16 Unknown History Clopidogrel Bisulfate [Plavix] 75 mg PO QDAY 08/27/16 08/27/16 Unknown History ISOSORBIDE MONOnitrate [Imdur ER] 60 mg PO QAM 08/27/16 08/27/16 Unknown History Insulin NPH Hum/Reg Insulin Hm 30 unit SC BID 08/27/16 08/27/16 Unknown History [HumuLIN 70-30 Vial] Lisinopril [Zestril TAB] 20 mg PO BID 08/27/16 08/27/16 Unknown History Metoprolol [Lopressor TAB] 50 mg PO BID 08/27/16 08/27/16 Unknown History Simvastatin [Zocor TAB] 20 mg PO QDAY 08/27/16 08/27/16 Unknown History amLODIPine [Norvasc] 10 mg PO QDAY 08/27/16 08/27/16 Unknown History hydrALAZINE [Apresoline TAB] 20 mg PO TID 08/27/16 08/27/16 Unknown History Active Meds: Active Medications Acetaminophen (Tylenol) 650 mg PO Q4H PRN PRN Reason: Pain MILD(1-3)/Fever >100.5/TUCKER Amlodipine Besylate (Norvasc) 10 mg PO QDAY [facility] Last Admin: 08/29/16 14:31 Dose: 10 mg Bisacodyl (Dulcolax) 10 mg [place] QDAY PRN PRN Reason: Constipation unrelieved by MOM Cholecalciferol (Vitamin D3) 2,000 unit PO QDAY [facility] Last Admin: 08/29/16 14:30 Dose: 2,000 unit Clonidine HCl (Catapres) 0.2 mg PO TID [facility] Last Admin: 08/29/16 09:21 Dose: 0.2 mg Clonidine HCl (Catapres) 0.1 mg PO TID [facility] Last Admin: 08/29/16 09:21 Dose: 0.1 mg Dextrose (D50w (25gm)) 50 ml IV PRN PRN PRN Reason: Hypoglycemia Dextrose (D50w (25gm)) 50 ml IV PRN PRN PRN Reason: Hypoglycemia Hydralazine HCl (Apresoline) 5 mg IV Q6H PRN PRN Reason: Hypertension Vancomycin HCl 1,500 mg/ (Sodium Chloride) 530 mls @ 333.333 mls/hr IV Q12H [facility] Last Admin: 08/29/16 14:42 Dose: 333.333 mls/hr Pantoprazole Sodium 80 mg/ (Sodium Chloride) 100 mls @ 10 mls/hr IV Q10H [facility] PRN Reason: 8 MG/HR Last Admin: 08/29/16 12:29 Dose: 8 mg/hr, 10 mls/hr Insulin Aspart (Novolog) 0 units SUB-Q ACHS [facility] PRN Reason: Protocol Last Admin: 08/29/16 12:37 Dose: Not Given Insulin Human Isoph/Insulin Regular (Novolin 70/30) 30 unit SUB-Q BIDDIAB [facility] Last Admin: 08/29/16 09:22 Dose: Not Given Isosorbide Mononitrate (Imdur) 60 mg PO QAM [facility] Last Admin: 08/29/16 14:31 Dose: 60 mg Lisinopril (Zestril) 20 mg PO BID [facility] Last Admin: 08/29/16 14:31 Dose: 20 mg Magnesium Hydroxide (Milk Of Magnesia) 30 ml PO Q4H PRN PRN Reason: Constipation Ondansetron HCl (Zofran) 4 mg IV Q6H PRN PRN Reason: Nausea And Vomiting Oxycodone/Acetaminophen (Percocet 5/325) 1 tab PO Q6H PRN PRN Reason: Pain, Moderate (4-6) Simvastatin (Zocor) 20 mg PO QDAY [facility] Last Admin: 08/29/16 14:31 Dose: 20 mg Vancomycin HCl (Vancomycin Pharmacy To Dose) 1 each IV PKCONSULT [facility] PRN Reason: Protocol Exam - Constitutional Vitals: Temp Pulse Resp BP Pulse Ox 98.2 F 79 20 154/60 97 08/29/16 07:38 08/29/16 07:38 08/29/16 07:38 08/29/16 14:31 08/29/16 10:00 Results - Labs CBC & Chem 7: 08/29/16 13:32 08/28/16 06:46 Labs: Abnormal lab results 08/28/16 08/28/16 08/29/16 Range/Units 16:54 21:39 13:32 Hgb 7.6 L (11.8-15.2) gm/dl Hct 23.5 L (35.5-45.6) % POC Glucose 159 H 69 L (70-105) Assessment and Plan Pt with DM, foot ulcer, R BKA, with 2 episodes of coffee ground emesis yesterday only. No other GI symptoms. Pt on ASA/Plavix. Anemic but unclear duration. No evidence of ongoing GI bleed. Likely MW tear. - bid PPI - clear liquids - monitor H/H, and check iron, etc - may consider EGD in hospital - outpatient colonoscopy.
[2016-08-29] MEDS: ROCEPHIN/NS 1 GM/50 ML 1 GM/50 ML BAG IV SCH (17:50)
[2016-08-29 17:58] LABS: Iron 20 ug/dL (49-181); Total Iron Binding Capacity 116 mcg/dL (250-450)
[2016-08-29] MEDS: TRIPLE ANTIBIOTIC TP SCH (19:45)
[2016-08-29] MEDS ORDERED: HEPARIN SUB-Q SCH (22:00)
[2016-08-30] MEDS: CATAPRES PO SCH ×8 (00:36→20:54)
[2016-08-30] MEDS: ZESTRIL PO SCH ×3 (00:37→22:00)
[2016-08-30] MEDS: NOVOLOG SUB-Q SCH ×5 (00:44→22:40)
--- NOTE | 2016-08-30 01:45 | Consultation ---
REASON FOR CONSULTATION: Coffee-ground emesis and anemia. 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 He is diabetic. Here, he apparently had 2 episodes of nausea and vomiting on the night of 08/28/2016 which he states were brownish in color. There was no padilla blood. He has had no further episodes since then and none prior to that. He states that if he becomes hypoglycemic, he will become nauseated. He denies any abdominal pain or prior nausea or vomiting. His bowel movements are regular on ____ several day basis. He has had no melena or hematochezia. He denies any known history of peptic ulcer disease. He is on aspirin and Plavix. Of note, the patient is anemic, but has no known history of anemia. He has not had a colonoscopy since at least 2006. He denies dysphagia and there has been no weight loss. He denies GERD symptoms. ALLERGIES: He has no known drug allergies. MEDICATIONS: At home, he is on insulin, vitamin D, aspirin, clonidine, hydralazine, simvastatin, metoprolol, Plavix, lisinopril, amlodipine and isosorbide. He has history 1. CVA -- this is why he is on Plavix and aspirin. 2. Hypertension. 3. Diabetes. 4. Renal insufficiency. 5. Right BKA. 6. Left foot ulcer. FAMILY HISTORY: Noncontributory. SOCIAL HISTORY: Negative for tobacco or ethanol usage. REVIEW OF SYSTEMS: Negative for chest pain, shortness of breath, cough, hemoptysis, fevers, chills, sweats. PHYSICAL EXAMINATION: GENERAL: This is an obese, elderly black male lying in bed in no apparent distress. VITAL SIGNS: Temperature is 98.2, pulse 79, blood pressure 154/60. HEENT: He is anicteric. Pupils are round and reactive. Oropharynx is clear. LUNGS: Clear bilaterally to auscultation. CARDIOVASCULAR: Regular with no extra heart sounds. ABDOMEN: Obese but soft, good bowel sounds and no organomegaly or tenderness to palpation. RECTAL: Deferred. EXTREMITIES: Reveal that he is status post right BKA. There is no edema. NEUROLOGIC: He is alert, oriented x 3 and grossly nonfocal. His speech is somewhat difficult to understand at times. LABORATORY DATA: White count is 6.8, hemoglobin 7.6, hematocrit 23.5, MCV of 82, platelet count of 221,000. His INR is 1.21, sodium 139, potassium 3.6, chloride 101, bicarbonate 27, BUN 24, creatinine 1.3, glucose is 153, AST is 39, ALT is 17, alkaline phosphatase 87, total bilirubin is 0.3, albumin is 2.8. IMPRESSION: 1. Coffee-ground emesis -- likely secondary to Deborah-Figueroa tear from retching. The patient could well have peptic ulcer disease or a silent esophagitis. There is no evidence of ongoing bleeding. At this point, I would empirically have him on a proton pump inhibitor and monitor. 2. Anemia -- this appears to be chronic and there is no evidence of ongoing bleeding. However, we will need to check iron studies. Other serologic testing also needs to be done for the anemia. It should then be monitored to transfuse if needed. Ultimately, the patient will more than likely need endoscopic evaluation and certainly a colonoscopy given his age, but this can be done on an outpatient basis as well. JOB# [id number] C/NTS
[2016-08-30] MEDS: VANCOMYCIN 1,500 MG in NACL 0.9% 500 ML 500 ML IV SCH (02:33)
--- NOTE | 2016-08-30 06:29 | Progress Note ---
Assessment and Plan Assessment and plan: 66-year-old man with history of hypertension, diabetes, right BKA, who has a chronic left ankle wound since 2016 comes emergency room because he is experiencing increased pain, increased drainage from the wound admitted with diabetic ulcer and noted osteomylitis. * Diabetic wound infection with osteomylitis- Continue Vancomycin, pharmacy to dose. Rocephin and topical triple antibiotics added. Ortho input noted. Will obtain ID consult. also check dopper us of lower ext. wound care consult, VASCULAR consult. -Arterial Doppler recommended by vascular. Also elevate lower extremity order to relieve pressure from the sides.. Goal is to try to salvage this patient uses this for his first since he hasn't ambulated in 3 years. * Osteomylitis of left lower ext-continue vancomycin. will need possible surgical cure, Vascular consult * Hypertensive urgency- continue current therapy, better controlled. Hydralazin prn * Pressure Lower Limb ulcer- admission. Vascular consult placed to eval PVD/ PAD. * Diabetes mellitus- continue insulin sliding scale coverage. resume clear liquids. decrease NPH to 20 units bid * Anemia- Iron def. possible GI bleed. no further episode. Patient has remained stable was restarted plavix and asa, patient reports hx of CVA, awaiting call back from family, start on PPI drip. Monitor H.H. GI input noted, Iron studies orded. changed PPI to IV daily . We'll transfuse 1 unit per carb low-salt diet optimize patient for possible surgery. * S/P Rt lower ext BKA. * HX OF CVA-restart ASA and plavix once stable from GI stand point. 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 * Plan of care discussed with patient in detail -. History Interval history: Patient seen and examined, in no acute distress. No further nausea or emesis noted. No other adverse event reported. Hospitalist Physical - Physical exam Narrative exam: VITAL SIGNS: Reviewed. GENERAL: The patient appeared well nourished and normally developed. Vital signs as documented. HEAD: No signs of head trauma. EYES: Pupils are equal. Extraocular motions intact. EARS: Hearing grossly intact. MOUTH: Oropharynx is normal. NECK: No adenopathy, no JVD. CHEST: Chest with clear breath sounds bilaterally. No wheezes, rales, or rhonchi. CARDIAC: Regular rate and rhythm. S1 and S2, without murmurs, gallops, or rubs. VASCULAR: No Edema. ABDOMEN: Soft, without detectable tenderness. No sign of distention. No rebound or guarding, and no masses palpated. Bowel Sounds normal. MUSCULOSKELETAL: Right BKA, left lateral malleus necrotic tissue with foul- smelling odor. Exposed wound. Chronic changes with loss of great toe. Decreased pulses. NEUROLOGIC EXAM: Alert and oriented x 3. No focal sensory. left lower ext weakness, ambulates with a wheelchair. Speech normal. Follows commands. PSYCHIATRIC: Mood normal. SKIN: necrotic lesion, lateral left malleus - Constitutional Vitals: Temp Pulse Resp BP Pulse Ox 98.3 F 69 20 135/67 95 08/30/16 00:00 08/30/16 00:42 08/30/16 00:00 08/30/16 00:42 08/30/16 00:00 General appearance: Present: no acute distress (sister present), well-nourished Results - Labs CBC & Chem 7: 08/30/16 08:04 08/30/16 08:04 Labs: Laboratory Last Values WBC 6.8 K/mm3 (4.5-11.0) 08/28/16 06:46 RBC 2.82 M/mm3 (3.65-5.03) L 08/28/16 06:46 Hgb 7.6 gm/dl (11.8-15.2) L 08/29/16 13:32 Hct 23.5 % (35.5-45.6) L 08/29/16 13:32 MCV 82 fl (84-94) L 08/28/16 06:46 MCH 27 pg (28-32) L 08/28/16 06:46 MCHC 32 % (32-34) 08/28/16 06:46 RDW 15.8 % (13.2-15.2) H 08/28/16 06:46 Plt Count 221 K/mm3 (140-440) 08/28/16 06:46 Lymph % (Auto) 12.7 % (13.4-35.0) L 08/28/16 06:46 [place] % (Auto) 8.2 % (0.0-7.3) H 08/28/16 06:46 Eos % (Auto) 2.3 % (0.0-4.3) 08/28/16 06:46 Baso % (Auto) 0.4 % (0.0-1.8) 08/28/16 06:46 Lymph # 0.9 K/mm3 (1.2-5.4) L 08/28/16 06:46 [place] # 0.6 K/mm3 (0.0-0.8) 08/28/16 06:46 Eos # 0.2 K/mm3 (0.0-0.4) 08/28/16 06:46 Baso # 0.0 K/mm3 (0.0-0.1) 08/28/16 06:46 Seg Neutrophils % 76.4 % (40.0-70.0) H 08/28/16 06:46 Seg Neutrophils # 5.2 K/mm3 (1.8-7.7) 08/28/16 06:46 PT 15.2 Sec. (12.2-14.9) H 08/27/16 19:24 INR 1.21 (0.87-1.13) H 08/27/16 19:24 VBG pH 7.393 (7.320-7.420) 08/27/16 20:04 Sodium 139 mmol/L (137-145) 08/28/16 06:46 Potassium 3.6 mmol/L (3.6-5.0) 08/28/16 06:46 Chloride 101.4 mmol/L (98-107) 08/28/16 06:46 Carbon Dioxide 27 mmol/L (22-30) 08/28/16 06:46 Anion Gap 14 mmol/L 08/28/16 06:46 BUN 24 mg/dL (9-20) H 08/28/16 06:46 Creatinine 1.3 mg/dL (0.8-1.5) 08/28/16 06:46 Estimated GFR > 60 ml/min 08/28/16 06:46 BUN/Creatinine Ratio 18.46 % 08/28/16 06:46 Glucose 153 mg/dL (75-100) H 08/28/16 06:46 POC Glucose 127 (70-105) H 08/30/16 06:03 Lactic Acid 0.70 mmol/L (0.7-2.0) 08/27/16 21:20 Calcium 7.8 mg/dL (8.4-10.2) L 08/28/16 06:46 Iron 20 ug/dL (49-181) L 08/29/16 17:09 TIBC 116 mcg/dL (250-450) L 08/29/16 17:09 Ferritin 359.5 ng/mL (13.0-400.0) 08/29/16 17:09 Total Bilirubin 0.30 mg/dL (0.1-1.2) 08/27/16 18:34 AST 39 units/L (5-40) 08/27/16 18:34 ALT 17 units/L (7-56) 08/27/16 18:34 Alkaline Phosphatase 87 units/L (35-129) 08/27/16 18:34 Total Protein 7.9 g/dL (6.3-8.2) 08/27/16 18:34 Albumin 2.8 g/dL (3.9-5) L 08/27/16 18:34 Albumin/Globulin Ratio 0.5 % 08/27/16 18:34 Vitamin B12 273.1 pg/mL (211-911) 08/29/16 17:09
[2016-08-30 08:33] LABS: Hematocrit 22.8 % (35.5-45.6); Hemoglobin 7.4 gm/dl (11.8-15.2); Mean Corpuscular HGB Conc 33 % (32-34); Mean Corpuscular Hemoglobin 27 pg (28-32); Mean Corpuscular Volume 82 fl (84-94); Platelet Count 229 K/mm3 (140-440); Red Blood Count 2.78 M/mm3 (3.65-5.03); Red Cell Distribution Width 15.4 % (13.2-15.2); White Blood Count 5.1 K/mm3 (4.5-11.0)
[2016-08-30 08:53] LABS: BUN/Creatinine Ratio 12.72; Blood Urea Nitrogen 14 mg/dL (9-20); Calcium 8.2 mg/dL (8.4-10.2); Carbon Dioxide 29 mmol/L (22-30); Glucose 122 mg/dL (75-100)
[2016-08-30 09:00] LABS: Anion Gap 13 mmol/L; Chloride 102.5 mmol/L (98-107); Potassium 4.6 mmol/L (3.6-5.0); Sodium 140 mmol/L (137-145)
[2016-08-30] MEDS: ROCEPHIN/NS 1 GM/50 ML 1 GM/50 ML BAG IV SCH (09:26)
[2016-08-30] MEDS: PROTONIX IV SCH (09:26)
[2016-08-30] MEDS: ZOCOR PO SCH (09:26)
[2016-08-30] MEDS: VITAMIN D3 PO SCH (09:27)
[2016-08-30] MEDS: NORVASC PO SCH (09:27)
[2016-08-30] MEDS: TRIPLE ANTIBIOTIC TP SCH (11:50)
[2016-08-30] MEDS: IMDUR PO SCH (11:50)
--- NOTE | 2016-08-30 14:32 | Consultation ---
History of Present Illness - Reason for Consult Consult date: 08/30/16 Requesting physician: ISIAH MAGUIRE - History of Present Illness The patient is a 66-year-old male with a history of peripheral vascular disease who was brought to the hospital with a nonhealing left ankle ulcer. The ulcer has been present for greater than a year without complete healing. He has a history of a right below-knee amputation and a left first toe amputation. He states that he has been going to the wound care center for wound care. The patient also states that he has not ambulated in over 3 years however he does use his left leg to transfer. Consulted for evaluation of his peripheral vascular disease. Past History Past Medical History: diabetes, hypertension, PVD, stroke, other (peripheral vascular disease) Past Surgical History: Other (right BKA, left first toe amputation) Social history: , lives with family Family history: hypertension Medications and Allergies Allergies Allergy/AdvReac Type Severity Reaction Status Date / Time shellfish derived Allergy Swelling Verified 12/11/13 10:40 Home Medications Medication Instructions Recorded Confirmed Last Taken Type Aspirin [Adult Low Dose Aspirin EC] 81 mg PO QDAY 08/27/16 08/27/16 Unknown History Cholecalciferol (Vitamin D3) 1 cap PO QDAY 08/27/16 08/27/16 Unknown History [Vitamin D3 2,000 unit] Clonidine HCl [Catapres] 0.3 mg PO TID 08/27/16 08/27/16 Unknown History Clopidogrel Bisulfate [Plavix] 75 mg PO QDAY 08/27/16 08/27/16 Unknown History ISOSORBIDE MONOnitrate [Imdur ER] 60 mg PO QAM 08/27/16 08/27/16 Unknown History Insulin NPH Hum/Reg Insulin Hm 30 unit SC BID 08/27/16 08/27/16 Unknown History [HumuLIN 70-30 Vial] Lisinopril [Zestril TAB] 20 mg PO BID 08/27/16 08/27/16 Unknown History Metoprolol [Lopressor TAB] 50 mg PO BID 08/27/16 08/27/16 Unknown History Simvastatin [Zocor TAB] 20 mg PO QDAY 08/27/16 08/27/16 Unknown History amLODIPine [Norvasc] 10 mg PO QDAY 08/27/16 08/27/16 Unknown History hydrALAZINE [Apresoline TAB] 20 mg PO TID 08/27/16 08/27/16 Unknown History Active Meds: Active Medications Acetaminophen (Tylenol) 650 mg PO Q4H PRN PRN Reason: Pain MILD(1-3)/Fever >100.5/TUCKER Amlodipine Besylate (Norvasc) 10 mg PO QDAY [facility] Last Admin: 08/30/16 09:27 Dose: 10 mg Bisacodyl (Dulcolax) 10 mg MD QDAY PRN PRN Reason: Constipation unrelieved by MOM Cholecalciferol (Vitamin D3) 2,000 unit PO QDAY [facility] Last Admin: 08/30/16 09:27 Dose: 2,000 unit Clonidine HCl (Catapres) 0.2 mg PO TID [facility] Last Admin: 08/30/16 09:27 Dose: 0.2 mg Clonidine HCl (Catapres) 0.1 mg PO TID [facility] Last Admin: 08/30/16 09:27 Dose: 0.1 mg Dextrose (D50w (25gm)) 50 ml IV PRN PRN PRN Reason: Hypoglycemia Dextrose (D50w (25gm)) 50 ml IV PRN PRN PRN Reason: Hypoglycemia Hydralazine HCl (Apresoline) 5 mg IV Q6H PRN PRN Reason: Hypertension Ceftriaxone Sodium (Rocephin/Ns 1 Gm/50 Ml) 1 gm in 50 mls @ 100 mls/hr IV Q24HR [facility] PRN Reason: Protocol Last Admin: 08/30/16 09:26 Dose: 100 mls/hr Insulin Aspart (Novolog) 0 units SUB-Q ACHS [facility] PRN Reason: Protocol Last Admin: 08/30/16 08:00 Dose: Not Given Insulin Human Isoph/Insulin Regular (Novolin 70/30) 20 unit SUB-Q BIDDIAB [facility] Last Admin: 08/30/16 11:49 Dose: 20 unit Isosorbide Mononitrate (Imdur) 60 mg PO QAM [facility] Last Admin: 08/30/16 11:50 Dose: 60 mg Lisinopril (Zestril) 20 mg PO BID [facility] Last Admin: 08/30/16 11:49 Dose: 20 mg Magnesium Hydroxide (Milk Of Magnesia) 30 ml PO Q4H PRN PRN Reason: Constipation Neomycin/Polymyxin/Bacitracin (Triple Antibiotic) 1 applic TP DAILY [facility] Last Admin: 08/30/16 11:50 Dose: 1 applic Ondansetron HCl (Zofran) 4 mg IV Q6H PRN PRN Reason: Nausea And Vomiting Oxycodone/Acetaminophen (Percocet 5/325) 1 tab PO Q6H PRN PRN Reason: Pain, Moderate (4-6) Pantoprazole Sodium (Protonix) 40 mg IV QDAY [facility] Last Admin: 08/30/16 09:26 Dose: 40 mg Simvastatin (Zocor) 20 mg PO QDAY [facility] Last Admin: 08/30/16 09:26 Dose: 20 mg Vancomycin HCl (Vancomycin Pharmacy To Dose) 1 each IV PKCONSULT [facility] PRN Reason: Protocol Review of Systems All systems: negative Exam - Constitutional Vitals: Temp Pulse Resp BP Pulse Ox 97.8 F 58 L 20 140/72 94 08/30/16 08:17 08/30/16 08:17 08/30/16 08:17 08/30/16 08:17 08/30/16 08:17 General appearance: Present: no acute distress - Respiratory Respiratory effort: normal - Extremities Extremities: abnormal (well-healed right below-knee amputation) Extremity abnormal: edema (edema of left lower extremity with dermatosclerosis and evidence of chronic venous insufficiency), other (left lateral ankle wound approximately 10 x 6 cm with several areas of necrotic tissue however the majority of the tissue appears pink and viable, patient's positioning RC puts pressure on the ulcer) - Abdominal General gastrointestinal: Present: soft Results - Labs CBC & Chem 7: 08/30/16 08:04 08/30/16 08:04 Labs: Abnormal lab results 08/29/16 08/29/16 08/30/16 Range/Units 17:09 21:28 06:03 RBC (3.65-5.03) M/mm3 Hgb (11.8-15.2) gm/dl Hct (35.5-45.6) % MCV (84-94) fl MCH (28-32) pg RDW (13.2-15.2) % Glucose (75-100) mg/dL POC Glucose 123 H 127 H (70-105) Calcium (8.4-10.2) mg/dL Iron 20 L (49-181) ug/dL TIBC 116 L (250-450) mcg/dL Vancomycin Trough (5.0-20.0) ug/mL 08/30/16 08/30/16 08/30/16 Range/Units 08:04 08:04 11:19 RBC 2.78 L (3.65-5.03) M/mm3 Hgb 7.4 L (11.8-15.2) gm/dl Hct 22.8 L (35.5-45.6) % MCV 82 L (84-94) fl MCH 27 L (28-32) pg RDW 15.4 H (13.2-15.2) % Glucose 122 H (75-100) mg/dL POC Glucose 191 H (70-105) Calcium 8.2 L (8.4-10.2) mg/dL Iron (49-181) ug/dL TIBC (250-450) mcg/dL Vancomycin Trough (5.0-20.0) ug/mL 08/30/16 Range/Units 13:06 RBC (3.65-5.03) M/mm3 Hgb (11.8-15.2) gm/dl Hct (35.5-45.6) % MCV (84-94) fl MCH (28-32) pg RDW (13.2-15.2) % Glucose (75-100) mg/dL POC Glucose (70-105) Calcium (8.4-10.2) mg/dL Iron (49-181) ug/dL TIBC (250-450) mcg/dL Vancomycin Trough 21.6 H (5.0-20.0) ug/mL - Imaging and Cardiology Venous US: image reviewed Assessment and Plan The patient is a 66-year-old male with a history of peripheral vascular disease and a nonhealing left leg wound. This appears to be a pressure ulcer as the patient's normal lying position in bed keeps his left leg laterally rotated and lying directly on the ulcer. Would recommend elevation of the leg and change in positioning to reduce the pressure on the ulcer. Also recommend arterial ultrasound to evaluate his arterial flow. There is any compromise in flow would recommend an arteriogram with intervention. Although the patient has not ambulated in 3 years and will likely not be able to ambulate in the future would take measures to salvage the leg as he uses this to transfer.
[2016-08-30] MEDS ORDERED: NACL 0.9% 500 ML 500 ML IV ONE (15:20)
--- NOTE | 2016-08-30 21:08 | Progress Note ---
Assessment and Plan 1. Anemia - etiology unclear. No iron deficiency or B12 deficiency. 2 episodes of coffee ground emesis on 08/28 only, likely from retching. No other GI symptoms. Pt on ASA/Plavix. Anemic but unclear duration. No evidence of ongoing GI bleed. - bid PPI - clear liquids - will do EGD, and possibly colonoscopy on 09/01, based on Plavix, etc. Subjective Date of service: 08/30/16 Interval history: Pt doing well. No complaints of abd discomfort. Objective - Constitutional Vitals: Vital Signs - 12hr 08/30/16 08/30/16 08/30/16 15:16 15:33 20:53 Temperature 97.4 F L Pulse Rate 61 Pulse Rate [ 54 L Left] Respiratory 20 Rate Blood Pressure 108/56 142/77 Blood Pressure 108/56 [Left Arm] 08/30/16 20:54 Temperature Pulse Rate 61 Pulse Rate [ Left] Respiratory Rate Blood Pressure 142/77 Blood Pressure [Left Arm] General appearance: Present: no acute distress - EENT Eyes: PERRL, EOM intact ENT: hearing intact - Respiratory Respiratory effort: normal - Gastrointestinal General gastrointestinal: Present: soft, non-tender - Labs CBC & Chem 7: 08/30/16 08:04 08/30/16 08:04 Labs: Abnormal lab results 08/29/16 08/30/16 08/30/16 Range/Units 21:28 06:03 08:04 RBC 2.78 L (3.65-5.03) M/mm3 Hgb 7.4 L (11.8-15.2) gm/dl Hct 22.8 L (35.5-45.6) % MCV 82 L (84-94) fl MCH 27 L (28-32) pg RDW 15.4 H (13.2-15.2) % Glucose (75-100) mg/dL POC Glucose 123 H 127 H (70-105) Calcium (8.4-10.2) mg/dL Vancomycin Trough (5.0-20.0) ug/mL Crossmatch 08/30/16 08/30/16 08/30/16 Range/Units 08:04 11:19 13:06 RBC (3.65-5.03) M/mm3 Hgb (11.8-15.2) gm/dl Hct (35.5-45.6) % MCV (84-94) fl MCH (28-32) pg RDW (13.2-15.2) % Glucose 122 H (75-100) mg/dL POC Glucose 191 H (70-105) Calcium 8.2 L (8.4-10.2) mg/dL Vancomycin Trough 21.6 H (5.0-20.0) ug/mL Crossmatch 08/30/16 08/30/16 Range/Units 16:30 16:33 RBC (3.65-5.03) M/mm3 Hgb (11.8-15.2) gm/dl Hct (35.5-45.6) % MCV (84-94) fl MCH (28-32) pg RDW (13.2-15.2) % Glucose (75-100) mg/dL POC Glucose 129 H (70-105) Calcium (8.4-10.2) mg/dL Vancomycin Trough (5.0-20.0) ug/mL Crossmatch See Detail
[2016-08-30] MEDS: VANCOMYCIN 1,250 MG in NACL 0.9% 250ML 250 ML IV SCH (22:06)
[2016-08-31 06:46] LABS: Hemoglobin 8.4 gm/dl (11.8-15.2)
[2016-08-31 07:30] LABS: Anion Gap 13 mmol/L; Blood Urea Nitrogen 11 mg/dL (9-20); Calcium 8.6 mg/dL (8.4-10.2); Carbon Dioxide 29 mmol/L (22-30); Chloride 99.8 mmol/L (98-107); Glucose 103 mg/dL (75-100); Potassium 4.8 mmol/L (3.6-5.0); Sodium 137 mmol/L (137-145)
[2016-08-31] MEDS: NOVOLOG SUB-Q SCH ×3 (07:50→18:47)
--- NOTE | 2016-08-31 07:57 | Progress Note ---
Assessment and Plan Assessment and plan: 66-year-old man with history of hypertension, diabetes, right BKA, who has a chronic left ankle wound since 2016 comes emergency room because he is experiencing increased pain, increased drainage from the wound admitted with diabetic ulcer and noted osteomylitis. * Diabetic wound infection with osteomylitis- Continue Vancomycin, pharmacy to dose. Rocephin and topical triple antibiotics added. Ortho input noted. ID consult noted. also check dopper us of lower ext. wound care consult, VASCULAR consult. -Arterial Doppler recommended by vascular. Also elevate lower extremity order to relieve pressure from the sides.. Goal is to try to salvage this patient uses this for his first since he hasn't ambulated in 3 years. * Osteomylitis of left lower ext-continue vancomycin. will need possible surgical cure, Vascular consult * Hypertensive urgency- Improved. continue current therapy, better controlled. Hydralazin prn * Pressure Lower Limb ulcer- admission. Vascular consult placed to eval PVD/ PAD. * Diabetes mellitus- continue insulin sliding scale coverage. resume clear liquids. decrease NPH to 20 units bid * Anemia- Iron def. No further episode. Hgb stablized. EGD/colonoscopy planned for AM. Patient has remained stable was restarted plavix and asa, patient reports hx of CVA, awaiting call back from family, start on PPI drip. Monitor H.H. GI input noted, continue daily PPI * S/P Rt lower ext BKA. 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 * Plan of care discussed with patient in detail And also with family. History Interval history: Patient seen and examined, in no acute distress. No other adverse event reported. Hospitalist Physical - Physical exam Narrative exam: VITAL SIGNS: Reviewed. GENERAL: The patient appeared well nourished and normally developed. Vital signs as documented. HEAD: No signs of head trauma. EYES: Pupils are equal. Extraocular motions intact. EARS: Hearing grossly intact. MOUTH: Oropharynx is normal. NECK: No adenopathy, no JVD. CHEST: Chest with clear breath sounds bilaterally. No wheezes, rales, or rhonchi. CARDIAC: Regular rate and rhythm. S1 and S2, without murmurs, gallops, or rubs. VASCULAR: No Edema. ABDOMEN: Soft, without detectable tenderness. No sign of distention. No rebound or guarding, and no masses palpated. Bowel Sounds normal. MUSCULOSKELETAL: Right BKA, left lateral malleus necrotic tissue with foul- smelling odor. Exposed wound. Chronic changes with loss of great toe. Decreased pulses. NEUROLOGIC EXAM: Alert and oriented x 3. No focal sensory. left lower ext weakness, ambulates with a wheelchair. Speech normal. Follows commands. PSYCHIATRIC: Mood normal. SKIN: necrotic lesion, lateral left malleus - Constitutional Vitals: Temp Pulse Resp BP Pulse Ox 97.1 F L 58 L 20 158/82 96 08/30/16 23:30 08/30/16 23:30 08/30/16 23:30 08/30/16 23:30 08/30/16 23:30 General appearance: Present: no acute distress Results - Labs CBC & Chem 7: 08/31/16 06:20 08/31/16 06:20 Labs: Laboratory Last Values WBC 5.1 K/mm3 (4.5-11.0) 08/30/16 08:04 RBC 2.78 M/mm3 (3.65-5.03) L 08/30/16 08:04 Hgb 8.4 gm/dl (11.8-15.2) L 08/31/16 06:20 Hct 26.0 % (35.5-45.6) L 08/31/16 06:20 MCV 82 fl (84-94) L 08/30/16 08:04 MCH 27 pg (28-32) L 08/30/16 08:04 MCHC 33 % (32-34) 08/30/16 08:04 RDW 15.4 % (13.2-15.2) H 08/30/16 08:04 Plt Count 229 K/mm3 (140-440) 08/30/16 08:04 Lymph % (Auto) 12.7 % (13.4-35.0) L 08/28/16 06:46 [place] % (Auto) 8.2 % (0.0-7.3) H 08/28/16 06:46 Eos % (Auto) 2.3 % (0.0-4.3) 08/28/16 06:46 Baso % (Auto) 0.4 % (0.0-1.8) 08/28/16 06:46 Lymph # 0.9 K/mm3 (1.2-5.4) L 08/28/16 06:46 [place] # 0.6 K/mm3 (0.0-0.8) 08/28/16 06:46 Eos # 0.2 K/mm3 (0.0-0.4) 08/28/16 06:46 Baso # 0.0 K/mm3 (0.0-0.1) 08/28/16 06:46 Seg Neutrophils % 76.4 % (40.0-70.0) H 08/28/16 06:46 Seg Neutrophils # 5.2 K/mm3 (1.8-7.7) 08/28/16 06:46 PT 15.2 Sec. (12.2-14.9) H 08/27/16 19:24 INR 1.21 (0.87-1.13) H 08/27/16 19:24 VBG pH 7.393 (7.320-7.420) 08/27/16 20:04 Sodium 137 mmol/L (137-145) 08/31/16 06:20 Potassium 4.8 mmol/L (3.6-5.0) 08/31/16 06:20 Chloride 99.8 mmol/L (98-107) 08/31/16 06:20 Carbon Dioxide 29 mmol/L (22-30) 08/31/16 06:20 Anion Gap 13 mmol/L 08/31/16 06:20 BUN 11 mg/dL (9-20) 08/31/16 06:20 Creatinine 1.0 mg/dL (0.8-1.5) 08/31/16 06:20 Estimated GFR > 60 ml/min 08/31/16 06:20 BUN/Creatinine Ratio 11.00 % 08/31/16 06:20 Glucose 103 mg/dL (75-100) H 08/31/16 06:20 POC Glucose 115 (70-105) H 08/31/16 06:32 Lactic Acid 0.70 mmol/L (0.7-2.0) 08/27/16 21:20 Calcium 8.6 mg/dL (8.4-10.2) 08/31/16 06:20 Iron 20 ug/dL (49-181) L 08/29/16 17:09 TIBC 116 mcg/dL (250-450) L 08/29/16 17:09 Ferritin 359.5 ng/mL (13.0-400.0) 08/29/16 17:09 Total Bilirubin 0.30 mg/dL (0.1-1.2) 08/27/16 18:34 AST 39 units/L (5-40) 08/27/16 18:34 ALT 17 units/L (7-56) 08/27/16 18:34 Alkaline Phosphatase 87 units/L (35-129) 08/27/16 18:34 Total Protein 7.9 g/dL (6.3-8.2) 08/27/16 18:34 Albumin 2.8 g/dL (3.9-5) L 08/27/16 18:34 Albumin/Globulin Ratio 0.5 % 08/27/16 18:34 Vitamin B12 273.1 pg/mL (211-911) 08/29/16 17:09 Vancomycin Trough 21.6 ug/mL (5.0-20.0) H 08/30/16 13:06 Blood Type O NEGATIVE 08/30/16 16:30 Antibody Screen TNR 08/30/16 16:30 Crossmatch See Detail 08/30/16 16:30
[2016-08-31] MEDS: CATAPRES PO SCH ×6 (08:46→21:27)
[2016-08-31] MEDS: ROCEPHIN/NS 1 GM/50 ML 1 GM/50 ML BAG IV SCH (09:37)
[2016-08-31] MEDS: VANCOMYCIN 1,250 MG in NACL 0.9% 250ML 250 ML IV SCH (10:41)
--- NOTE | 2016-08-31 11:42 | Progress Note ---
Assessment and Plan Arterial duplex show bi-phasic flow proximally and mono-phasic distally. Pt with non-healing wound to his LLE (greater than 1 year). He likely will need arteriogram to improve chances of distal wound healing. Discussed with patient. Will check the cath-lab schedule over the next couple of days, and add pt on to the schedule. - Patient Problems (1) Atherosclerosis of [place] arteries of the extremities with ulceration Current Visit: Yes Status: Acute Subjective Date of service: 08/31/16 Interval history: Pt awake without specific complaints at present. Objective - Constitutional Vitals: Vital Signs - 12hr 08/30/16 08/31/16 08/31/16 23:30 07:45 08:46 Temperature 97.1 F L 97.7 F Pulse Rate [ 57 L Left] Pulse Rate [ 58 L Right] Respiratory 20 20 Rate Blood Pressure 163/84 Blood Pressure 173/84 [Left Arm] Blood Pressure 158/82 [Right Arm] O2 Sat by Pulse 96 97 Oximetry 08/31/16 08:47 Temperature Pulse Rate [ Left] Pulse Rate [ Right] Respiratory Rate Blood Pressure 163/84 Blood Pressure [Left Arm] Blood Pressure [Right Arm] O2 Sat by Pulse Oximetry General appearance: Present: no acute distress - EENT Eyes: EOM intact ENT: hearing intact - Respiratory Respiratory effort: normal Extremities: abnormal (LLE ulcer to his lateral ankle, bandaged with min-mod collection on bandages.) - Psychiatric Psychiatric: appropriate mood/affect, cooperative - Labs CBC & Chem 7: 08/31/16 06:20 08/31/16 06:20 Labs: Abnormal lab results 08/30/16 08/30/16 08/30/16 Range/Units 11:19 13:06 16:30 Hgb (11.8-15.2) gm/dl Hct (35.5-45.6) % Glucose (75-100) mg/dL POC Glucose 191 H (70-105) Vancomycin Trough 21.6 H (5.0-20.0) ug/mL Crossmatch See Detail 08/30/16 08/31/16 08/31/16 Range/Units 16:33 06:20 06:20 Hgb 8.4 L (11.8-15.2) gm/dl Hct 26.0 L (35.5-45.6) % Glucose 103 H (75-100) mg/dL POC Glucose 129 H (70-105) Vancomycin Trough (5.0-20.0) ug/mL Crossmatch 08/31/16 Range/Units 06:32 Hgb (11.8-15.2) gm/dl Hct (35.5-45.6) % Glucose (75-100) mg/dL POC Glucose 115 H (70-105) Vancomycin Trough (5.0-20.0) ug/mL Crossmatch
--- NOTE | 2016-08-31 13:23 | Gastroenterology Progress Note ---
Addendum entered and electronically signed by THERESE IGLESIAS NP 08/31/16 13: 31: Okay to continue to give ASA/Plavix, EGD only tomorrow Original Note: Assessment and Plan 1. anemia -HGB 8.4- stable -continue to monitor H&H and transfuse as needed -continue BID PPI -anemia with unclear etiology, no iron deficiency or B12 deficiency, 2 episodes of coffee ground emesis (08/28) likely from retching -no signs of active bleeding today -hold blood thinning medications -NPO after MN -will schedule EGD for tomorrow -possible colonoscopy on 09/01 -pt had been on plavix -will follow Subjective Date of service: 08/31/16 Principal diagnosis: anemia Interval history: Patient resting in the bed. Family at bedside. No acute distress. Denies active signs of bleeding overnight and today. Objective - Constitutional Vitals: Temp Pulse Resp BP Pulse Ox 97.7 F 57 L 20 163/84 97 08/31/16 07:45 08/31/16 07:45 08/31/16 07:45 08/31/16 08:47 08/31/16 07:45 General appearance: no acute distress - EENT Eyes: PERRL, EOM intact ENT: hearing intact - Neck Neck: supple, normal ROM - Respiratory Respiratory: bilateral: CTA (anterior) - Cardiovascular Rhythm: regular Heart Sounds: Present: S1 & S2 - Extremities Extremity abnormal: other (Right BKA, Left lower ext with dressing) - Gastrointestinal General gastrointestinal: Present: soft, non-tender, non-distended, normal bowel sounds - Integumentary Integumentary: Present: warm, dry - Neurologic Neurological: alert and oriented x3 - Psychiatric Psychiatric: appropriate mood/affect, cooperative - Labs CBC & Chem 7: 08/31/16 06:20 08/31/16 06:20 Labs: Laboratory Results - last 24 hr 08/30/16 08/30/16 08/30/16 13:06 16:30 16:33 Hgb Hct Sodium Potassium Chloride Carbon Dioxide Anion Gap BUN Creatinine Estimated GFR BUN/Creatinine Ratio Glucose POC Glucose 129 H Calcium Vancomycin Trough 21.6 H Blood Type O NEGATIVE Antibody Screen TNR Crossmatch See Detail 08/30/16 08/31/16 08/31/16 22:24 06:20 06:20 Hgb 8.4 L Hct 26.0 L Sodium 137 Potassium 4.8 Chloride 99.8 Carbon Dioxide 29 Anion Gap 13 BUN 11 Creatinine 1.0 Estimated GFR > 60 BUN/Creatinine Ratio 11.00 Glucose 103 H POC Glucose 103 Calcium 8.6 Vancomycin Trough Blood Type Antibody Screen Crossmatch 08/31/16 08/31/16 06:32 12:05 Hgb Hct Sodium Potassium Chloride Carbon Dioxide Anion Gap BUN Creatinine Estimated GFR BUN/Creatinine Ratio Glucose POC Glucose 115 H 138 H Calcium Vancomycin Trough Blood Type Antibody Screen Crossmatch
[2016-08-31] MEDS: IMDUR PO SCH (13:35)
[2016-08-31] MEDS: BABY ASPIRIN PO SCH (13:35)
[2016-08-31] MEDS: ZESTRIL PO SCH ×2 (13:36→22:31)
[2016-08-31] MEDS: NORVASC PO SCH (13:37)
[2016-08-31] MEDS: PLAVIX PO SCH (13:37)
[2016-08-31] MEDS: PROTONIX IV SCH (13:38)
[2016-08-31] MEDS: VITAMIN D3 PO SCH (13:38)
--- NOTE | 2016-08-31 16:38 | Progress Note ---
Assessment and Plan - Patient Problems (1) Osteomyelitis of ankle Current Visit: Yes Status: Acute Qualifiers: Osteomyelitis type: unspecified type Laterality: left Qualified Code(s): M86.9 - Osteomyelitis, unspecified Plan to address problem: 1. Presumed from wound's appearance and chronicity of wound. 2. MRSA and Proteus mirabilis isolated. Elevated Vancomycin MAISHA noted for MRSA isolate. Will change to Bactrim along with topical antibiotic. 3. Duration of therapy based upon findings of arterial studies and any surgical plan. (2) Lower limb ulcer Current Visit: Yes Status: Acute Qualifiers: Laterality: left Non-pressure ulcer stage: unspecified non-pressure ulcer stage Qualified Code(s): L97.929 - Non-pressure chronic ulcer of unspecified part of left lower leg with unspecified severity Plan to address problem: 1. Off-loading and local wound care with frequent dressing changes. 2. Pending vascular studies. Subjective Date of service: 08/31/16 Principal diagnosis: anemia Interval history: Remains afebrile. Stable. Venous studies are normal with lower extremity arterial studies pending. Objective - Constitutional Vitals: Vital Signs Temp Pulse Resp BP Pulse Ox 97.3 F L 56 L 20 136/69 99 08/31/16 16:11 08/31/16 16:11 08/31/16 16:11 08/31/16 16:11 08/31/16 16:11 Temperature -Last 24 Hours Temperature 97.3 F Temperature 97.7 F Temperature 97.1 F General appearance: Present: no acute distress - Respiratory Respiratory effort: normal Respiratory: bilateral: CTA - Cardiovascular Rhythm: regular Heart Sounds: Present: S1 & S2 Extremity abnormal: pulses diminished, other (unchanged left lateral malleolar ulcer with chronic hyperpigmentation of foot) - Gastrointestinal General gastrointestinal: Present: soft, non-distended - Integumentary Integumentary: no rash - Neurologic Neurologic: other (mild dysarthria, unchnaged) - Psychiatric Psychiatric: appropriate mood/affect - Labs CBC & Chem 7: 08/31/16 06:20 08/31/16 06:20 Labs: Abnormal lab results 08/30/16 08/30/16 08/31/16 Range/Units 16:30 16:33 06:20 Hgb (11.8-15.2) gm/dl Hct (35.5-45.6) % Glucose 103 H (75-100) mg/dL POC Glucose 129 H (70-105) Crossmatch See Detail 08/31/16 08/31/16 08/31/16 Range/Units 06:20 06:32 12:05 Hgb 8.4 L (11.8-15.2) gm/dl Hct 26.0 L (35.5-45.6) % Glucose (75-100) mg/dL POC Glucose 115 H 138 H (70-105) Crossmatch Microbiology 08/27/16 18:40 Foot - Left Wound Culture - Final Proteus Mirabilis Methicillin Resist S. Aureus 08/27/16 19:24 Peripheral/Venous Blood Culture - Preliminary NO GROWTH AFTER 72 HOURS 08/27/16 19:24 Peripheral/Venous Blood Culture - Preliminary NO GROWTH AFTER 72 HOURS 08/27/16 20:04 Peripheral/Venous Blood Culture - Preliminary NO GROWTH AFTER 72 HOURS 08/27/16 18:34 Peripheral/Venous Blood Culture - Preliminary NO GROWTH AFTER 72 HOURS - Imaging and cardiology Venous US: report reviewed
[2016-08-31] MEDS: ZOCOR PO SCH (18:58)
[2016-08-31] MEDS: TRIPLE ANTIBIOTIC TP SCH (19:50)
[2016-08-31] MEDS: BACTRIM DS PO SCH (22:31)
[2016-09-01] MEDS: NOVOLOG SUB-Q SCH ×5 (02:56→22:20)
[2016-09-01] MEDS: CATAPRES PO SCH ×6 (08:00→20:47)
--- NOTE | 2016-09-01 09:30 | Vascular Lab Report ---
LEFT LOWER EXTREMITY ARTERIAL DUPLEX: REASON FOR EXAM: Peripheral arterial disease. COMMENTS ON THE LEFT: Biphasic waveforms are seen proximally. Monophasic waveforms are seen distally. No significant velocity gradients are identified. Focal but not hemodynamically stenosis noted in the common femoral and superficial femoral arteries. Findings are consistent with abnormal perfusion. Findings are inconclusive with the ability to heal distal wounds. IMPRESSION: RIGHT: Abnormal arterial flow without hemodynamically significant stenosis..
[2016-09-01] MEDS: VITAMIN D3 PO SCH (10:00)
[2016-09-01] MEDS: BACTRIM DS PO SCH ×2 (10:00→21:25)
[2016-09-01] MEDS: IMDUR PO SCH (10:00)
[2016-09-01] MEDS: TRIPLE ANTIBIOTIC TP SCH (10:00)
[2016-09-01] MEDS: ZOCOR PO SCH (10:00)
[2016-09-01] MEDS: ZESTRIL PO SCH ×2 (10:00→21:24)
[2016-09-01] MEDS: BABY ASPIRIN PO SCH (10:00)
[2016-09-01] MEDS: NORVASC PO SCH (10:00)
[2016-09-01] MEDS: PLAVIX PO SCH (10:00)
--- NOTE | 2016-09-01 10:28 | Event Note ---
Date: 09/01/16 Pt for EGD today. Await results. Possible LLE arteriogram and intervention to follow based upon anemia w/u results and our skilled laborer schedule.
[2016-09-01] MEDS: APRESOLINE IV PRN (10:33)
[2016-09-01] MEDS: PROTONIX IV SCH (10:35)
--- NOTE | 2016-09-01 11:43 | Progress Note ---
Assessment and Plan Assessment and plan: Assessment and Plan Assessment and plan: 66-year-old man with history of hypertension, diabetes, right BKA, who has a chronic left ankle wound since 2016 comes emergency room because he is experiencing increased pain, increased drainage from the wound admitted with diabetic ulcer and noted osteomylitis. * Diabetic wound infection with osteomylitis- Wound cx. Ortho input noted. ID consult noted, VASCULAR consult. -Arterial Doppler recommended by vascular. Also elevate lower extremity order to relieve pressure from the sides.. Goal is to try to salvage this patient uses this for his first since he hasn't ambulated in 3 years. * Osteomylitis of left lower ext, MRSA and Proteus-continue abx per ID, MAISHA is high for vanc, switch to bactrim * Hypertensive urgency- optimize meds, BP still high today * Pressure Lower Limb ulcer- admission. Vascular consult placed to eval PVD/ PAD. * Diabetes mellitus- continue Insulins and insulin sliding scale coverage. resume clear liquids. * Anemia- acute blood loss. No further episode. Hgb stablized. EGD/ colonoscopy planned for AM. , patient reports hx of CVA, awaiting call back from family. Monitor H.H. GI input noted, continue daily PPI * S/P Rt lower ext BKA. 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 * Plan of care discussed with patient in detail And also with family. * Dispo- TO SNF History Interval history: denies pain, denies fever, denies chills Hospitalist Physical - Physical exam Narrative exam: General: Patient appears well in no distress HEENT: MMM, EOMI cardiac: S1-S2 heard lungs: clear to auscultation, abdomen: soft, nontender, nondistended bowel sounds positive extremities: R BKA, Left heel ulcer 2/1.5/.3, necrotic appearance, mild odor, tendon epxosed, bone is close to surface LLE has dry, shriveled, dry gangrenous appearance, poor pulses Skin: no rash or lesion Neuro: no focal deficit Psych: appropriate behavior and mood, cognition intact - Constitutional Vitals: Temp Pulse Resp BP Pulse Ox 98.4 F 75 18 170/84 97 09/01/16 08:00 09/01/16 10:33 09/01/16 08:00 09/01/16 10:33 09/01/16 08:00 General appearance: Present: no acute distress Results - Labs CBC & Chem 7: 09/02/16 09:15 09/02/16 09:15 Labs: Laboratory Last Values WBC 5.1 K/mm3 (4.5-11.0) 08/30/16 08:04 RBC 2.78 M/mm3 (3.65-5.03) L 08/30/16 08:04 Hgb 8.4 gm/dl (11.8-15.2) L 08/31/16 06:20 Hct 26.0 % (35.5-45.6) L 08/31/16 06:20 MCV 82 fl (84-94) L 08/30/16 08:04 MCH 27 pg (28-32) L 08/30/16 08:04 MCHC 33 % (32-34) 08/30/16 08:04 RDW 15.4 % (13.2-15.2) H 08/30/16 08:04 Plt Count 229 K/mm3 (140-440) 08/30/16 08:04 Lymph % (Auto) 12.7 % (13.4-35.0) L 08/28/16 06:46 [place] % (Auto) 8.2 % (0.0-7.3) H 08/28/16 06:46 Eos % (Auto) 2.3 % (0.0-4.3) 08/28/16 06:46 Baso % (Auto) 0.4 % (0.0-1.8) 08/28/16 06:46 Lymph # 0.9 K/mm3 (1.2-5.4) L 08/28/16 06:46 [place] # 0.6 K/mm3 (0.0-0.8) 08/28/16 06:46 Eos # 0.2 K/mm3 (0.0-0.4) 08/28/16 06:46 Baso # 0.0 K/mm3 (0.0-0.1) 08/28/16 06:46 Seg Neutrophils % 76.4 % (40.0-70.0) H 08/28/16 06:46 Seg Neutrophils # 5.2 K/mm3 (1.8-7.7) 08/28/16 06:46 PT 15.2 Sec. (12.2-14.9) H 08/27/16 19:24 INR 1.21 (0.87-1.13) H 08/27/16 19:24 VBG pH 7.393 (7.320-7.420) 08/27/16 20:04 Sodium 137 mmol/L (137-145) 08/31/16 06:20 Potassium 4.8 mmol/L (3.6-5.0) 08/31/16 06:20 Chloride 99.8 mmol/L (98-107) 08/31/16 06:20 Carbon Dioxide 29 mmol/L (22-30) 08/31/16 06:20 Anion Gap 13 mmol/L 08/31/16 06:20 BUN 11 mg/dL (9-20) 08/31/16 06:20 Creatinine 1.0 mg/dL (0.8-1.5) 08/31/16 06:20 Estimated GFR > 60 ml/min 08/31/16 06:20 BUN/Creatinine Ratio 11.00 % 08/31/16 06:20 Glucose 103 mg/dL (75-100) H 08/31/16 06:20 POC Glucose 109 (70-105) H 09/01/16 05:59 Lactic Acid 0.70 mmol/L (0.7-2.0) 08/27/16 21:20 Calcium 8.6 mg/dL (8.4-10.2) 08/31/16 06:20 Iron 20 ug/dL (49-181) L 08/29/16 17:09 TIBC 116 mcg/dL (250-450) L 08/29/16 17:09 Ferritin 359.5 ng/mL (13.0-400.0) 08/29/16 17:09 Total Bilirubin 0.30 mg/dL (0.1-1.2) 08/27/16 18:34 AST 39 units/L (5-40) 08/27/16 18:34 ALT 17 units/L (7-56) 08/27/16 18:34 Alkaline Phosphatase 87 units/L (35-129) 08/27/16 18:34 Total Protein 7.9 g/dL (6.3-8.2) 08/27/16 18:34 Albumin 2.8 g/dL (3.9-5) L 08/27/16 18:34 Albumin/Globulin Ratio 0.5 % 08/27/16 18:34 Vitamin B12 273.1 pg/mL (211-911) 08/29/16 17:09 Vancomycin Trough 21.6 ug/mL (5.0-20.0) H 08/30/16 13:06 Blood Type O NEGATIVE 08/30/16 16:30 Antibody Screen TNR 08/30/16 16:30 FERMIN Antibody Screen Negative 08/30/16 16:30 Crossmatch See Detail 08/30/16 16:30
--- NOTE | 2016-09-01 12:37 | Progress Note ---
Assessment and Plan - Patient Problems (1) Osteomyelitis of ankle Current Visit: Yes Status: Acute Qualifiers: Osteomyelitis type: unspecified type Laterality: left Qualified Code(s): M86.9 - Osteomyelitis, unspecified Plan to address problem: 1. Osteomyelitis is anticipated given the chronicity and location of patient' s wound. 2. Before committing patient to a prolonged course of antibiotics, there should be a good plan and expectation of ankle wound closure. 3. Would continue Bactrim BID for 21 days along with continued, aggressive wound care, including debridement and off-loading. 4. Vascular intervention per specialist's recommendation. (2) Lower limb ulcer Current Visit: Yes Status: Acute Qualifiers: Laterality: left Non-pressure ulcer stage: unspecified non-pressure ulcer stage Qualified Code(s): L97.929 - Non-pressure chronic ulcer of unspecified part of left lower leg with unspecified severity Plan to address problem: Per above regarding off-loading and debridement. Further vascular intervention per specialist. Subjective Date of service: 09/01/16 Principal diagnosis: anemia Interval history: Arterial studies completed of left leg. No new issues with foot. Objective - Constitutional Vitals: Vital Signs Temp Pulse Resp BP Pulse Ox 98.4 F 75 18 170/84 97 09/01/16 08:00 09/01/16 10:33 09/01/16 08:00 09/01/16 10:33 09/01/16 08:00 Temperature -Last 24 Hours Temperature 98.4 F Temperature 97.6 F Temperature 97.3 F General appearance: Present: no acute distress - Respiratory Respiratory effort: normal Respiratory: bilateral: CTA - Cardiovascular Heart Sounds: Present: S1 & S2 Extremity abnormal: other (unchanged left foot with serous drainage from ulcer at lateral ankle) - Gastrointestinal General gastrointestinal: Present: soft, non-distended - Integumentary Integumentary: no rash - Labs CBC & Chem 7: 08/31/16 06:20 08/31/16 06:20 Labs: Abnormal lab results 08/30/16 08/31/16 09/01/16 Range/Units 16:30 17:00 05:59 POC Glucose 110 H 109 H (70-105) Crossmatch See Detail 09/01/16 Range/Units 12:01 POC Glucose 153 H (70-105) Crossmatch Microbiology 08/27/16 19:24 Peripheral/Venous Blood Culture - Preliminary NO GROWTH AFTER 4 DAYS 08/27/16 19:24 Peripheral/Venous Blood Culture - Preliminary NO GROWTH AFTER 4 DAYS 08/27/16 20:04 Peripheral/Venous Blood Culture - Preliminary NO GROWTH AFTER 4 DAYS 08/27/16 18:34 Peripheral/Venous Blood Culture - Preliminary NO GROWTH AFTER 4 DAYS 08/27/16 18:40 Foot - Left Wound Culture - Final Proteus Mirabilis Methicillin Resist S. Aureus - Imaging and cardiology Other: report reviewed (Lower Ext Arterial Duplex - inconclusive findings for the ability to heal distal wounds of left leg)
[2016-09-01] MEDS: NACL 0.9% 1000 ML 1,000 ML IV SCH ×2 (13:35→21:34)
--- NOTE | 2016-09-01 13:42 | Anesthesia Day of Surgery ---
Anesthesia Day of Surgery - Day of Surgery Patient Examined: Yes Patient H&P Reviewed: Yes Patient is NPO: Yes
--- NOTE | 2016-09-01 13:45 | Anesthesia Consultation ---
Anesthesia Consult and Med Hx Date of service: 09/01/16 - Airway Anesthetic Teeth Evaluation: Poor (missing) ROM Head & Neck: Adequate Mental/Hyoid Distance: Adequate Mallampati Class: Class IV Intubation Access Assessment: Possibly Difficult - Pulmonary Exam CTA: Yes - Cardiac Exam Cardiac Exam: RRR - Pre-Operative Health Status ASA Pre-Surgery Classification: ASA3 Proposed Anesthetic Plan: MAC - Pulmonary Hx Smoking: Yes (smoked cigar stopped 2008) Hx Asthma: No COPD: No Hx Sleep Apnea: No (High risk) - Cardiovascular System Hx Hypertension: Yes Hx Heart Attack/AMI: No - Central Nervous System Hx Seizures: No CVA: Yes (2009, slow speech) - Endocrine Hx Renal Disease: Yes (CRD) Hx Liver Disease: No Hx Non-Insulin Dependent Diabetes: Yes (Rt BKA, Lt foot ulcer) - Hematic Hx Anemia: Yes Hx Sickle Cell Disease: No - Other Systems Hx Cancer: No Hx Obesity: Yes - Additional Comments Anesthesia Medical History Comments: NAC
[2016-09-01] MEDS ORDERED: DIPRIVAN 10 MG/ML IV ONE (13:48)
[2016-09-01] MEDS ORDERED: WATER FOR IRRIG STERILE IR ONE (14:32)
--- NOTE | 2016-09-01 14:54 | Post Operative Note ---
Pre-op diagnosis: Anemia, coffee ground emesis Post-op diagnosis: other (Small hiatal hernia, o/w normal exam) Findings: 1. 3 cm hiatal hernia 2. Otherwise normal endoscopy Procedure: EGD Anesthesia: MAC Surgeon: LEOPOLDO ALVARADO Estimated blood loss: none Pathology: none Condition: stable Disposition: floor (1. Okay to continue ASA/Plavix 2. Outpatient colonoscopy 3. May need outpt Hematologic eval for anemia Will sign off. Please call as needed.)
--- NOTE | 2016-09-01 15:05 | Post Anesthesia Evaluation ---
- Post Anesthesia Evaluation Patient Participated: Yes Airway Patent: Yes Stable Respiratory Function: Yes Temp > 96.8F: Yes Pain Manageable: Yes Adequeate Hydration: Yes Anesthesia Complications: No Block Receding Appropriately: Not Applicable
--- NOTE | 2016-09-01 18:45 | Operative Report ---
UPPER ENDOSCOPY REPORT PROCEDURE: Upper endoscopy PREOPERATIVE DIAGNOSIS: Anemia - normocytic normochromic. POSTOPERATIVE DIAGNOSIS: Normal upper endoscopy with small hiatal hernia. SEDATION: MAC by Anesthesia. HISTORY: The patient is a 66-year-old man with peripheral vascular disease who presented with hemoglobin of 8.3 and an MCV of 82. His iron was slightly low at 20, but with a TIBC that was equally low at 116 for a saturation of 18% and a normal ferritin of 359. Vitamin B12 was also normal at 273. He did give a history of nausea and vomiting with coffee-ground emesis x2 only. Procedure, indications, risks, and benefits were explained and consent was obtained. The patient was placed in left lateral decubitus position and sedated. [employer] video upper scope was passed through the mouth and oropharynx into the descending duodenum. Scope was then gradually withdrawn with close inspection of mucosa. FINDINGS: 1. Normal appearing esophagus with sharp Z-line located at 42 cm from the incisors. 2. A 3 cm hiatal hernia. 3. Normal appearing gastric antrum, fundus, body, and cardia. 4. Normal appearing duodenal bulb and duodenum. The patient tolerated the procedure well without immediate complication. IMPRESSION: Normal upper endoscopy with a small hiatal hernia - no etiology for coffee-ground emesis or bleeding noted. RECOMMENDATIONS: 1. May discharge from GI standpoint on his aspirin and Plavix that he takes for stroke prevention. 2. The patient will need an outpatient colonoscopy, the duration of which is unclear and then possibly hematologic evaluation, to assess his anemia. JOB# [id number] HRC/NTS
[2016-09-02] MEDS ORDERED: ANCEF/STERILE WATER 2 GM/20 ML 2 GM/20 ML SYRINGE IV NR (06:00)
--- NOTE | 2016-09-02 08:28 | Progress Note ---
Assessment and Plan Assessment and plan: 66-year-old man with history of hypertension, diabetes, right BKA, who has a chronic left ankle wound since 2016 comes emergency room because he is experiencing increased pain, increased drainage from the wound admitted with diabetic ulcer and noted osteomylitis. * Diabetic wound infection with osteomylitis- Wound cx. Ortho input noted. ID consult noted, * Left lower extremity dry gangrene, with heel ulcer due to Arterial insufficienty; VASCULAR consult. -Arterial Doppler recommended by vascular. Also elevate lower extremity order to relieve pressure from the sides.. Goal is to try to salvage the limb * Osteomylitis of left lower ext, MRSA and Proteus-continue abx per ID, MAISHA is high for vanc, switch to bactrim * Hypertensive urgency- Bp better controlled, continue current meds * Pressure Lower Limb ulcer- admission. Vascular consult placed to eval PVD/ PAD. * Diabetes mellitus- continue 70/30 Insulins and insulin sliding scale coverage. resume clear liquids. * Anemia- acute blood loss. No further episode. Hgb stablized. EGD was negative, Monitor H.H. GI input noted, continue daily PPI * S/P Rt lower ext BKA. 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 * Plan of care discussed with patient in detail And also with family. * Dispo- TO SNF History Interval history: denies pain, denies fever, denies chills Hospitalist Physical - Physical exam Narrative exam: General: Patient appears well in no distress HEENT: MMM, EOMI cardiac: S1-S2 heard lungs: clear to auscultation, abdomen: soft, nontender, nondistended bowel sounds positive extremities: R BKA, Left heel ulcer 2/1.5/.3, necrotic appearance, mild odor, tendon epxosed, bone is close to surface LLE has dry, shriveled, dry gangrenous appearance, poor pulses Skin: no rash or lesion Neuro: no focal deficit Psych: appropriate behavior and mood, cognition intact - Constitutional Vitals: Temp Pulse Resp BP Pulse Ox 98.1 F 69 18 172/83 98 09/02/16 00:00 09/02/16 00:00 09/02/16 00:00 09/02/16 00:00 09/02/16 00:00 General appearance: Present: no acute distress Results - Labs CBC & Chem 7: 09/02/16 09:15 09/02/16 09:15 Labs: Laboratory Last Values WBC 5.1 K/mm3 (4.5-11.0) 08/30/16 08:04 RBC 2.78 M/mm3 (3.65-5.03) L 08/30/16 08:04 Hgb 8.4 gm/dl (11.8-15.2) L 08/31/16 06:20 Hct 26.0 % (35.5-45.6) L 08/31/16 06:20 MCV 82 fl (84-94) L 08/30/16 08:04 MCH 27 pg (28-32) L 08/30/16 08:04 MCHC 33 % (32-34) 08/30/16 08:04 RDW 15.4 % (13.2-15.2) H 08/30/16 08:04 Plt Count 229 K/mm3 (140-440) 08/30/16 08:04 Lymph % (Auto) 12.7 % (13.4-35.0) L 08/28/16 06:46 [place] % (Auto) 8.2 % (0.0-7.3) H 08/28/16 06:46 Eos % (Auto) 2.3 % (0.0-4.3) 08/28/16 06:46 Baso % (Auto) 0.4 % (0.0-1.8) 08/28/16 06:46 Lymph # 0.9 K/mm3 (1.2-5.4) L 08/28/16 06:46 [place] # 0.6 K/mm3 (0.0-0.8) 08/28/16 06:46 Eos # 0.2 K/mm3 (0.0-0.4) 08/28/16 06:46 Baso # 0.0 K/mm3 (0.0-0.1) 08/28/16 06:46 Seg Neutrophils % 76.4 % (40.0-70.0) H 08/28/16 06:46 Seg Neutrophils # 5.2 K/mm3 (1.8-7.7) 08/28/16 06:46 PT 15.2 Sec. (12.2-14.9) H 08/27/16 19:24 INR 1.21 (0.87-1.13) H 08/27/16 19:24 VBG pH 7.393 (7.320-7.420) 08/27/16 20:04 Sodium 137 mmol/L (137-145) 08/31/16 06:20 Potassium 4.8 mmol/L (3.6-5.0) 08/31/16 06:20 Chloride 99.8 mmol/L (98-107) 08/31/16 06:20 Carbon Dioxide 29 mmol/L (22-30) 08/31/16 06:20 Anion Gap 13 mmol/L 08/31/16 06:20 BUN 11 mg/dL (9-20) 08/31/16 06:20 Creatinine 1.0 mg/dL (0.8-1.5) 08/31/16 06:20 Estimated GFR > 60 ml/min 08/31/16 06:20 BUN/Creatinine Ratio 11.00 % 08/31/16 06:20 Glucose 103 mg/dL (75-100) H 08/31/16 06:20 POC Glucose 148 (70-105) H 09/02/16 06:07 Lactic Acid 0.70 mmol/L (0.7-2.0) 08/27/16 21:20 Calcium 8.6 mg/dL (8.4-10.2) 08/31/16 06:20 Iron 20 ug/dL (49-181) L 08/29/16 17:09 TIBC 116 mcg/dL (250-450) L 08/29/16 17:09 Ferritin 359.5 ng/mL (13.0-400.0) 08/29/16 17:09 Total Bilirubin 0.30 mg/dL (0.1-1.2) 08/27/16 18:34 AST 39 units/L (5-40) 08/27/16 18:34 ALT 17 units/L (7-56) 08/27/16 18:34 Alkaline Phosphatase 87 units/L (35-129) 08/27/16 18:34 Total Protein 7.9 g/dL (6.3-8.2) 08/27/16 18:34 Albumin 2.8 g/dL (3.9-5) L 08/27/16 18:34 Albumin/Globulin Ratio 0.5 % 08/27/16 18:34 Vitamin B12 273.1 pg/mL (211-911) 08/29/16 17:09 Vancomycin Trough 21.6 ug/mL (5.0-20.0) H 08/30/16 13:06 Blood Type O NEGATIVE 08/30/16 16:30 Antibody Screen TNR 08/30/16 16:30 FERMIN Antibody Screen Negative 08/30/16 16:30 Crossmatch See Detail 08/30/16 16:30
[2016-09-02 10:07] LABS: Hematocrit 28.4 % (35.5-45.6); Mean Corpuscular HGB Conc 32 % (32-34); Mean Corpuscular Volume 81 fl (84-94); Platelet Count 298 K/mm3 (140-440); Red Blood Count 3.51 M/mm3 (3.65-5.03); Red Cell Distribution Width 15.8 % (13.2-15.2); White Blood Count 3.4 K/mm3 (4.5-11.0)
[2016-09-02 10:11] LABS: Mean Corpuscular Hemoglobin 26 pg (28-32)
[2016-09-02 10:25] LABS: Anion Gap 14 mmol/L; Blood Urea Nitrogen 12 mg/dL (9-20); Carbon Dioxide 29 mmol/L (22-30); Chloride 99.8 mmol/L (98-107); Glucose 141 mg/dL (75-100); Potassium 4.7 mmol/L (3.6-5.0); Sodium 138 mmol/L (137-145)
[2016-09-02] MEDS: NOVOLOG SUB-Q SCH ×4 (10:27→23:03)
[2016-09-02] MEDS: TRIPLE ANTIBIOTIC TP SCH (10:29)
[2016-09-02] MEDS: ZOCOR PO SCH (10:29)
[2016-09-02] MEDS: VITAMIN D3 PO SCH (10:29)
[2016-09-02] MEDS: PLAVIX PO SCH (10:30)
[2016-09-02] MEDS: PROTONIX IV SCH (10:30)
[2016-09-02] MEDS: BACTRIM DS PO SCH ×2 (10:30→23:03)
[2016-09-02] MEDS: BABY ASPIRIN PO SCH (10:30)
[2016-09-02] MEDS: PROCARDIA XL PO SCH (10:35)
[2016-09-02] MEDS: IMDUR PO SCH (10:36)
[2016-09-02] MEDS: CATAPRES PO SCH ×6 (10:36→23:02)
[2016-09-02] MEDS: ZESTRIL PO SCH ×2 (10:37→23:02)
--- NOTE | 2016-09-02 10:43 | Progress Note ---
Assessment and Plan - Patient Problems (1) Osteomyelitis of ankle Current Visit: Yes Status: Acute Qualifiers: Osteomyelitis type: unspecified type Laterality: left Qualified Code(s): M86.9 - Osteomyelitis, unspecified Plan to address problem: 1. Bactrim DS BID for 21 days, though this may be limited by myelosuppression. Following WBC count. 2. Pressure off-loading of lateral ankle, also local, aggressive wound care. (2) Lower limb ulcer Current Visit: Yes Status: Acute Qualifiers: Laterality: left Non-pressure ulcer stage: unspecified non-pressure ulcer stage Qualified Code(s): L97.929 - Non-pressure chronic ulcer of unspecified part of left lower leg with unspecified severity Plan to address problem: Vascular intervention per recommendations of specialist. (3) Leukopenia Current Visit: Yes Status: Acute Qualifiers: Leukopenia type: L Neutropenia type: N Plan to address problem: Following closely while on Bactrim. May need alternate antibiotic. Subjective Date of service: 09/02/16 Principal diagnosis: anemia Interval history: Remains stable. Afebrile. Upper endoscopy completed yesterday. Objective - Constitutional Vitals: Vital Signs Temp Pulse Resp BP Pulse Ox 97.8 F 65 18 152/63 100 09/02/16 10:00 09/02/16 10:37 09/02/16 10:00 09/02/16 10:37 09/02/16 10:00 Temperature -Last 24 Hours Temperature 97.8 F Temperature 98.2 F Temperature 98.1 F Temperature 98 F Temperature 97.8 F Temperature 97.5 F Temperature 97.4 F Temperature 97.4 F General appearance: Present: no acute distress, obese - Respiratory Respiratory effort: normal Respiratory: bilateral: CTA - Cardiovascular Rhythm: regular Heart Sounds: Present: S1 & S2 Extremities: abnormal (slightly decreased drainage from left ankle, mild odor; s /p right AKA) - Gastrointestinal General gastrointestinal: Present: soft, non-distended - Integumentary Integumentary: no jaundice, no rash - Neurologic Neurologic: other (mild dysarthria) - Psychiatric Psychiatric: appropriate mood/affect - Labs CBC & Chem 7: 09/02/16 09:15 09/02/16 09:15 Labs: Abnormal lab results 09/01/16 09/01/16 09/01/16 Range/Units 12:01 16:40 21:26 WBC (4.5-11.0) K/mm3 RBC (3.65-5.03) M/mm3 Hgb (11.8-15.2) gm/dl Hct (35.5-45.6) % MCV (84-94) fl MCH (28-32) pg RDW (13.2-15.2) % Glucose (75-100) mg/dL POC Glucose 153 H 121 H 190 H (70-105) 09/02/16 09/02/16 09/02/16 Range/Units 06:07 09:15 09:15 WBC 3.4 L (4.5-11.0) K/mm3 RBC 3.51 L (3.65-5.03) M/mm3 Hgb 9.0 L (11.8-15.2) gm/dl Hct 28.4 L (35.5-45.6) % MCV 81 L (84-94) fl MCH 26 L (28-32) pg RDW 15.8 H (13.2-15.2) % Glucose 141 H (75-100) mg/dL POC Glucose 148 H (70-105) Microbiology 08/27/16 19:24 Peripheral/Venous Blood Culture - Final NO GROWTH AFTER 5 DAYS 08/27/16 19:24 Peripheral/Venous Blood Culture - Final NO GROWTH AFTER 5 DAYS 08/27/16 20:04 Peripheral/Venous Blood Culture - Final NO GROWTH AFTER 5 DAYS 08/27/16 18:34 Peripheral/Venous Blood Culture - Final NO GROWTH AFTER 5 DAYS 08/27/16 18:40 Foot - Left Wound Culture - Final Proteus Mirabilis Methicillin Resist S. Aureus - Imaging and cardiology Other: report reviewed (Upper Endoscopy - normal-appearing stomach and esophagus ; 3cm hiatal hernia)
[2016-09-02 10:50] LABS: Calcium 8.3 mg/dL (8.4-10.2)
--- NOTE | 2016-09-02 13:59 | Event Note ---
Date: 09/02/16 Consult was obtained from our service for a nonhealing left foot ulcer. The patient underwent EGD with gastroenterology to evaluate for coffee-ground emesis. No abnormalities were found. Per GI, it is okay to continue aspirin and Plavix. Ultrasound findings were inconclusive for vascular etiology of the nonhealing wounds. We will proceed with angiography tomorrow, 09/03/2016, with possible intervention.
[2016-09-02] MEDS: NACL 0.9% 1000 ML 1,000 ML IV SCH (18:17)
[2016-09-03] MEDS: CATAPRES PO SCH ×6 (08:00→20:48)
[2016-09-03] MEDS: NOVOLOG SUB-Q SCH ×4 (08:00→22:00)
[2016-09-03] MEDS: PROTONIX IV SCH (10:00)
[2016-09-03] MEDS: IMDUR PO SCH (12:32)
[2016-09-03] MEDS: BACTRIM DS PO SCH ×2 (12:32→22:00)
[2016-09-03] MEDS: ZOCOR PO SCH (12:32)
[2016-09-03] MEDS: PROCARDIA XL PO SCH (12:33)
[2016-09-03] MEDS: ZESTRIL PO SCH ×2 (12:34→22:00)
[2016-09-03] MEDS: BABY ASPIRIN PO SCH (12:38)
[2016-09-03] MEDS: VITAMIN D3 PO SCH (12:39)
[2016-09-03] MEDS: PLAVIX PO SCH (12:40)
--- NOTE | 2016-09-03 15:33 | Progress Note ---
Assessment and Plan Assessment and plan: 66-year-old man with history of hypertension, diabetes, right BKA, who has a chronic left ankle wound since 2016 comes emergency room because he is experiencing increased pain, increased drainage from the wound admitted with diabetic ulcer and noted osteomylitis. * Diabetic wound infection with osteomylitis- Wound cx. Ortho input noted. ID consult appreciated, continue bactrim till 09/22 * Left lower extremity dry gangrene, with heel ulcer due to Arterial insufficienty, S/P Rt lower ext BKA.; VASCULAR consult. -appreciated, given the chronic nature of his condition, lasting over a year, will schedule him for outpatient angiogram and possible angioplasty on 09/22 * Osteomylitis of left lower ext, MRSA and Proteus-continue abx per ID, MAISHA is high for vanc, switch to bactrim * Hypertensive urgency- Bp better controlled, continue current meds * Pressure Lower Limb ulcer- admission. Vascular consult placed to eval PVD/ PAD. * Diabetes mellitus- continue 70/30 Insulins and insulin sliding scale coverage. resume clear liquids. * Anemia- acute blood loss. No further episode. Hgb stablized. EGD was negative, Monitor H.H. 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 * Dispo- TO SNF , awaiting placement History Interval history: denies pain, denies fever, denies chills Hospitalist Physical - Physical exam Narrative exam: General: Patient appears well in no distress HEENT: MMM, EOMI cardiac: S1-S2 heard lungs: clear to auscultation, abdomen: soft, nontender, nondistended bowel sounds positive extremities: R BKA, Left heel ulcer 2/1.5/.3, necrotic appearance, mild odor, tendon epxosed, bone is close to surface LLE has dry, shriveled, dry gangrenous appearance, poor pulses Skin: no rash or lesion Neuro: no focal deficit Psych: appropriate behavior and mood, cognition intact - Constitutional Vitals: Temp Pulse Resp BP Pulse Ox 97.8 F 64 18 167/86 97 09/03/16 07:00 09/03/16 12:34 09/03/16 07:00 09/03/16 12:34 09/03/16 07:00 General appearance: Present: no acute distress, obese Results - Labs CBC & Chem 7: 09/02/16 09:15 09/02/16 09:15 Labs: Laboratory Last Values WBC 3.4 K/mm3 (4.5-11.0) L 09/02/16 09:15 RBC 3.51 M/mm3 (3.65-5.03) L 09/02/16 09:15 Hgb 9.0 gm/dl (11.8-15.2) L 09/02/16 09:15 Hct 28.4 % (35.5-45.6) L 09/02/16 09:15 MCV 81 fl (84-94) L 09/02/16 09:15 MCH 26 pg (28-32) L 09/02/16 09:15 MCHC 32 % (32-34) 09/02/16 09:15 RDW 15.8 % (13.2-15.2) H 09/02/16 09:15 Plt Count 298 K/mm3 (140-440) 09/02/16 09:15 Lymph % (Auto) 12.7 % (13.4-35.0) L 08/28/16 06:46 [place] % (Auto) 8.2 % (0.0-7.3) H 08/28/16 06:46 Eos % (Auto) 2.3 % (0.0-4.3) 08/28/16 06:46 Baso % (Auto) 0.4 % (0.0-1.8) 08/28/16 06:46 Lymph # 0.9 K/mm3 (1.2-5.4) L 08/28/16 06:46 [place] # 0.6 K/mm3 (0.0-0.8) 08/28/16 06:46 Eos # 0.2 K/mm3 (0.0-0.4) 08/28/16 06:46 Baso # 0.0 K/mm3 (0.0-0.1) 08/28/16 06:46 Seg Neutrophils % 76.4 % (40.0-70.0) H 08/28/16 06:46 Seg Neutrophils # 5.2 K/mm3 (1.8-7.7) 08/28/16 06:46 PT 15.2 Sec. (12.2-14.9) H 08/27/16 19:24 INR 1.21 (0.87-1.13) H 08/27/16 19:24 VBG pH 7.393 (7.320-7.420) 08/27/16 20:04 Sodium 138 mmol/L (137-145) 09/02/16 09:15 Potassium 4.7 mmol/L (3.6-5.0) 09/02/16 09:15 Chloride 99.8 mmol/L (98-107) 09/02/16 09:15 Carbon Dioxide 29 mmol/L (22-30) 09/02/16 09:15 Anion Gap 14 mmol/L 09/02/16 09:15 BUN 12 mg/dL (9-20) 09/02/16 09:15 Creatinine 1.2 mg/dL (0.8-1.5) 09/02/16 09:15 Estimated GFR > 60 ml/min 09/02/16 09:15 BUN/Creatinine Ratio 10.00 % 09/02/16 09:15 Glucose 141 mg/dL (75-100) H 09/02/16 09:15 POC Glucose 138 (70-105) H 09/03/16 11:30 Lactic Acid 0.70 mmol/L (0.7-2.0) 08/27/16 21:20 Calcium 8.3 mg/dL (8.4-10.2) L 09/02/16 09:15 Iron 20 ug/dL (49-181) L 08/29/16 17:09 TIBC 116 mcg/dL (250-450) L 08/29/16 17:09 Ferritin 359.5 ng/mL (13.0-400.0) 08/29/16 17:09 Total Bilirubin 0.30 mg/dL (0.1-1.2) 08/27/16 18:34 AST 39 units/L (5-40) 08/27/16 18:34 ALT 17 units/L (7-56) 08/27/16 18:34 Alkaline Phosphatase 87 units/L (35-129) 08/27/16 18:34 Total Protein 7.9 g/dL (6.3-8.2) 08/27/16 18:34 Albumin 2.8 g/dL (3.9-5) L 08/27/16 18:34 Albumin/Globulin Ratio 0.5 % 08/27/16 18:34 Vitamin B12 273.1 pg/mL (211-911) 08/29/16 17:09 Vancomycin Trough 21.6 ug/mL (5.0-20.0) H 08/30/16 13:06 Blood Type O NEGATIVE 08/30/16 16:30 Antibody Screen TNR 08/30/16 16:30 FERMIN Antibody Screen Negative 08/30/16 16:30 Crossmatch See Detail 08/30/16 16:30
--- NOTE | 2016-09-03 15:50 | Discharge Summary ---
Providers - Providers Date of Admission: 08/27/16 23:39 Attending physician: BAO BOND MD 08/28/16 07:40 Consult to Physician [CONS] Routine Consulting Provider: HECTOR SOLARES Reason For Exam: Left ankle osteomyelitis Place consult to:: Charles BORGES Notified:: DR. SOLARES Phone number called:: IN HOUSE Was contact made?: Yes If yes, spoke with:: DR. SOLARES Time called:: 09:07 08/29/16 08:56 Consult to Physician [CONS] Routine Consulting Provider: ANA CRISTINA YIP Reason For Exam: GI BLEED Place consult to:: DR. YIP Notified:: AN[employer]ERING [employer] Phone number called:: [phone] Was contact made?: Yes If yes, spoke with:: JOYCE Time called:: 10:11 Comment:: KATJA NOTIFIED 08/29/16 08:58 Consult to Physician [CONS] Routine Consulting Provider: TALI LAN Reason For Exam: DIABETIC FOOT ULCER Place consult to:: DR. LAN Notified:: CELL PHONE MESSAGE Phone number called:: [phone] Was contact made?: Yes If yes, spoke with:: [employer] MESSAGE Time called:: 10:15 Comment:: KATJA NOTIFIED 08/30/16 06:28 Consult to Physician [CONS] Routine Consulting Provider: ALEX LAWSON Reason For Exam: PVD Place consult to:: Paula Notified:: yes Phone number called:: [phone] If yes, spoke with:: abby Time called:: 08:55 Comment:: Dr Delta Dennis investor relations analyst 09/02/16 08:26 Physical Therapy Evaluation and Treat [CONS] Routine Comment: Reason For Exam: debility Primary care physician: INTERTYPE OPERATOR Hospitalization Condition: Fair Hospital course: 66-year-old man with history of hypertension, diabetes, right BKA, who has a chronic left ankle wound since 2016 comes emergency room because he is experiencing increased pain, increased drainage from right heel . He was admitted with infected diabetic ulcer and noted osteomylitis. He was admitted, treated with IV antibiotics, wound cultures went on to grow MRSA, he was transitioned to by mouth antibiotics which he will continue till 09/22. He was seen in conjunction with infectious disease, and vascular surgery. He went on to have an angioplasty of left anterior tibial and left peroneal artery on 09/08 , he had some post op bleeding which resolved, and Hg was stable; fup dopplers were neg for pseudoaneurysm of the groin. He had a worsening of his renal function due to vasomotor nephropathy and received IV fluids after which his renal function normalized also received a small dose of Kayexalate for mild hyperkalemia He had 2 episodes of coffee-ground emesis, for that reason he went on to have an EGD, EGD did not show any acute findings,He was treated with insulin for diabetes, had no further episodes of hematemesis, blood counts initially dropped, but then stabilized and improved. His blood pressure medications were optimized Discharge diagnoses Diabetic wound infection/Osteomylitis of the left lower extremity MRSA and Proteus wound infection Hypertensive urgency Peripheral arterial disease with chronic dry gangrene of left lower extremity Acute GI bleed Acute blood loss anemia Functional quadriplegia secondary to CVA HORTENSIA- vasomotor nephropathy Hyperkalemia Debility Disposition: DC/[place]-[facility] Time spent for discharge: 35 minutes Core Measure Documentation - Palliative Care Palliative Care/ Comfort Measures: Not Applicable - Core Measures Any of the following diagnoses?: none Exam - Physical Exam Narrative exam: General: Patient appears well in no distress HEENT: MMM, EOMI cardiac: S1-S2 heard lungs: clear to auscultation, abdomen: soft, nontender, nondistended bowel sounds positive extremities: R BKA, Left heel ulcer 2/1.5/.3, necrotic appearance, mild odor, tendon epxosed, bone is close to surface LLE has dry, shriveled, dry gangrenous appearance, poor pulses Skin: no rash or lesion Neuro: no focal deficit Psych: appropriate behavior and mood, cognition intact - Constitutional Vitals: Temp Pulse Resp BP Pulse Ox 97.8 F 64 18 167/86 97 09/03/16 07:00 09/03/16 12:34 09/03/16 07:00 09/03/16 12:34 09/03/16 07:00 Plan Additional Instructions: Patient is to fup with Vascular surgery within 1 to 2 weeks Follow up with: DIANA LAYNE MD [Primary Care Provider] - 3-5 Days RYAN SOSA MD [Staff Physician] - 7 Days Prescriptions: oxyCODONE /ACETAMINOPHEN [Percocet 5/325 mg] 1 tab PO Q6H PRN #7 tablet PRN Reason: Pain, Moderate (4-6) Sulfamethoxazole/Trimethoprim [Bactrim DS TAB] 1 each PO BID #26 tablet
[2016-09-03] MEDS: TRIPLE ANTIBIOTIC TP SCH (18:25)
[2016-09-04] MEDS: NOVOLOG SUB-Q SCH ×4 (07:30→22:00)
[2016-09-04] MEDS: CATAPRES PO SCH ×6 (08:00→20:34)
--- NOTE | 2016-09-04 08:18 | Progress Note ---
Assessment and Plan - Patient Problems (1) Osteomyelitis of ankle Current Visit: Yes Status: Acute Qualifiers: Osteomyelitis type: unspecified type Laterality: left Qualified Code(s): M86.9 - Osteomyelitis, unspecified Plan to address problem: 1. Plan as previously noted, to continue oral Bactrim and topical antibiotics to wound with each dressing change through September 22, 2016. 2. Aggressive wound care with debridement as needed and pressure off- loading. 3. Follow WBC count as Bactrim course may be limited by myelosuppression. Alternate therapy may be required. (2) Lower limb ulcer Current Visit: Yes Status: Acute Qualifiers: Laterality: left Non-pressure ulcer stage: unspecified non-pressure ulcer stage Qualified Code(s): L97.929 - Non-pressure chronic ulcer of unspecified part of left lower leg with unspecified severity Plan to address problem: 1. Pressure off-loading. 2. Further vascular evaluation planned as outpatient. (3) Leukopenia Current Visit: Yes Status: Acute Qualifiers: Leukopenia type: L Neutropenia type: N Plan to address problem: Per above. Subjective Date of service: 09/04/16 Principal diagnosis: anemia Interval history: No new complaints. Objective - Constitutional Vitals: Vital Signs Temp Pulse Resp BP Pulse Ox 98.0 F 69 18 115/66 90 09/03/16 23:30 09/03/16 23:30 09/03/16 23:30 09/03/16 23:30 09/03/16 23:30 Temperature -Last 24 Hours Temperature 98.0 F General appearance: Present: no acute distress, obese - Respiratory Respiratory: bilateral: CTA, negative: wheezing - Cardiovascular Rhythm: regular Heart Sounds: Present: S1 & S2 Extremity abnormal: other (serous drainage from laft ankle wound with areas of adherent slough, decreased odor; s/p right AKA) - Gastrointestinal General gastrointestinal: Present: soft, non-distended - Integumentary Integumentary: clear, no rash - Neurologic Neurologic: other (mild dysarthria) - Labs CBC & Chem 7: 09/02/16 09:15 09/02/16 09:15 Labs: Abnormal lab results 09/03/16 09/03/16 09/03/16 Range/Units 11:30 16:21 21:30 POC Glucose 138 H 171 H 128 H (70-105) Microbiology 08/27/16 19:24 Peripheral/Venous Blood Culture - Final NO GROWTH AFTER 5 DAYS 08/27/16 19:24 Peripheral/Venous Blood Culture - Final NO GROWTH AFTER 5 DAYS 08/27/16 20:04 Peripheral/Venous Blood Culture - Final NO GROWTH AFTER 5 DAYS 08/27/16 18:34 Peripheral/Venous Blood Culture - Final NO GROWTH AFTER 5 DAYS 08/27/16 18:40 Foot - Left Wound Culture - Final Proteus Mirabilis Methicillin Resist S. Aureus
[2016-09-04] MEDS: ZESTRIL PO SCH ×2 (10:00→22:00)
[2016-09-04] MEDS: BACTRIM DS PO SCH ×2 (10:39→22:00)
[2016-09-04] MEDS: VITAMIN D3 PO SCH (10:39)
[2016-09-04] MEDS: PROTONIX PO SCH (10:39)
[2016-09-04] MEDS: BABY ASPIRIN PO SCH (10:39)
[2016-09-04] MEDS: ZOCOR PO SCH (10:39)
[2016-09-04] MEDS: PLAVIX PO SCH (10:40)
[2016-09-04] MEDS: IMDUR PO SCH (10:40)
[2016-09-04] MEDS: PROCARDIA XL PO SCH (10:41)
[2016-09-04] MEDS: TRIPLE ANTIBIOTIC TP SCH (10:42)
--- NOTE | 2016-09-04 11:44 | Progress Note ---
Assessment and Plan Assessment and plan: 66-year-old man with history of hypertension, diabetes, right BKA, who has a chronic left ankle wound since 2016 comes emergency room because he is experiencing increased pain, increased drainage from the wound admitted with diabetic ulcer and noted osteomylitis. * Diabetic wound infection with osteomylitis- Wound culture grew MRSA and proteus, continue Bactrim till 09/22, infectious disease input appreciated Peripheral arterial disease, dry gangrene of left lower extremity Vascular surgery input appreciated, he scheduled for outpatient angiogram on Blood pressure improved, continue current meds Acute blood loss anemia Blood counts have stabilized now improved Acute GI bleed Patient had episodes of coffee-ground emesis, status post EGD with no acute findings. Continue PPI Functional quadriplegia Continue supportive care History of CVA Continue aspirin and Plavix hypertensive urgency Bp better controlled, continue current meds Patient is planned for SNIF placement, case management on board History Interval history: denies pain, denies fever, denies chills Hospitalist Physical - Physical exam Narrative exam: General: Patient appears well in no distress HEENT: MMM, EOMI cardiac: S1-S2 heard lungs: clear to auscultation, abdomen: soft, nontender, nondistended bowel sounds positive extremities: R BKA, Left heel ulcer 2/1.5/.3, necrotic appearance, mild odor, tendon epxosed, bone is close to surface LLE has dry, shriveled, dry gangrenous appearance, poor pulses Skin: no rash or lesion Neuro: no focal deficit Psych: appropriate behavior and mood, cognition intact - Constitutional Vitals: Temp Pulse Resp BP Pulse Ox 98.8 F 72 16 140/71 100 09/04/16 08:00 09/04/16 08:00 09/04/16 08:00 09/04/16 08:00 09/04/16 08:00 General appearance: Present: no acute distress, obese Results - Labs CBC & Chem 7: 09/02/16 09:15 09/02/16 09:15 Labs: Laboratory Last Values WBC 3.4 K/mm3 (4.5-11.0) L 09/02/16 09:15 RBC 3.51 M/mm3 (3.65-5.03) L 09/02/16 09:15 Hgb 9.0 gm/dl (11.8-15.2) L 09/02/16 09:15 Hct 28.4 % (35.5-45.6) L 09/02/16 09:15 MCV 81 fl (84-94) L 09/02/16 09:15 MCH 26 pg (28-32) L 09/02/16 09:15 MCHC 32 % (32-34) 09/02/16 09:15 RDW 15.8 % (13.2-15.2) H 09/02/16 09:15 Plt Count 298 K/mm3 (140-440) 09/02/16 09:15 Lymph % (Auto) 12.7 % (13.4-35.0) L 08/28/16 06:46 [place] % (Auto) 8.2 % (0.0-7.3) H 08/28/16 06:46 Eos % (Auto) 2.3 % (0.0-4.3) 08/28/16 06:46 Baso % (Auto) 0.4 % (0.0-1.8) 08/28/16 06:46 Lymph # 0.9 K/mm3 (1.2-5.4) L 08/28/16 06:46 [place] # 0.6 K/mm3 (0.0-0.8) 08/28/16 06:46 Eos # 0.2 K/mm3 (0.0-0.4) 08/28/16 06:46 Baso # 0.0 K/mm3 (0.0-0.1) 08/28/16 06:46 Seg Neutrophils % 76.4 % (40.0-70.0) H 08/28/16 06:46 Seg Neutrophils # 5.2 K/mm3 (1.8-7.7) 08/28/16 06:46 PT 15.2 Sec. (12.2-14.9) H 08/27/16 19:24 INR 1.21 (0.87-1.13) H 08/27/16 19:24 VBG pH 7.393 (7.320-7.420) 08/27/16 20:04 Sodium 138 mmol/L (137-145) 09/02/16 09:15 Potassium 4.7 mmol/L (3.6-5.0) 09/02/16 09:15 Chloride 99.8 mmol/L (98-107) 09/02/16 09:15 Carbon Dioxide 29 mmol/L (22-30) 09/02/16 09:15 Anion Gap 14 mmol/L 09/02/16 09:15 BUN 12 mg/dL (9-20) 09/02/16 09:15 Creatinine 1.2 mg/dL (0.8-1.5) 09/02/16 09:15 Estimated GFR > 60 ml/min 09/02/16 09:15 BUN/Creatinine Ratio 10.00 % 09/02/16 09:15 Glucose 141 mg/dL (75-100) H 09/02/16 09:15 POC Glucose 92 (70-105) 09/04/16 06:19 Lactic Acid 0.70 mmol/L (0.7-2.0) 08/27/16 21:20 Calcium 8.3 mg/dL (8.4-10.2) L 09/02/16 09:15 Iron 20 ug/dL (49-181) L 08/29/16 17:09 TIBC 116 mcg/dL (250-450) L 08/29/16 17:09 Ferritin 359.5 ng/mL (13.0-400.0) 08/29/16 17:09 Total Bilirubin 0.30 mg/dL (0.1-1.2) 08/27/16 18:34 AST 39 units/L (5-40) 08/27/16 18:34 ALT 17 units/L (7-56) 08/27/16 18:34 Alkaline Phosphatase 87 units/L (35-129) 08/27/16 18:34 Total Protein 7.9 g/dL (6.3-8.2) 08/27/16 18:34 Albumin 2.8 g/dL (3.9-5) L 08/27/16 18:34 Albumin/Globulin Ratio 0.5 % 08/27/16 18:34 Vitamin B12 273.1 pg/mL (211-911) 08/29/16 17:09 Vancomycin Trough 21.6 ug/mL (5.0-20.0) H 08/30/16 13:06 Blood Type O NEGATIVE 08/30/16 16:30 Antibody Screen TNR 08/30/16 16:30 FERMIN Antibody Screen Negative 08/30/16 16:30 Crossmatch See Detail 08/30/16 16:30
[2016-09-05] MEDS: NOVOLOG SUB-Q SCH ×4 (08:47→22:27)
[2016-09-05] MEDS: PLAVIX PO SCH (10:11)
[2016-09-05] MEDS: TRIPLE ANTIBIOTIC TP SCH (10:11)
[2016-09-05] MEDS: PROTONIX PO SCH (10:11)
[2016-09-05] MEDS: PROCARDIA XL PO SCH (10:11)
[2016-09-05] MEDS: ZOCOR PO SCH (10:11)
[2016-09-05] MEDS: CATAPRES PO SCH ×6 (10:11→21:02)
[2016-09-05] MEDS: VITAMIN D3 PO SCH (10:11)
[2016-09-05] MEDS: IMDUR PO SCH (10:12)
[2016-09-05] MEDS: BACTRIM DS PO SCH ×2 (10:12→22:19)
[2016-09-05] MEDS: BABY ASPIRIN PO SCH (10:12)
[2016-09-05] MEDS: ZESTRIL PO SCH ×2 (10:12→22:20)
--- NOTE | 2016-09-05 15:22 | Progress Note ---
Assessment and Plan Assessment and plan: 66-year-old man with history of hypertension, diabetes, right BKA, who has a chronic left ankle wound since 2016 comes emergency room because he is experiencing increased pain, increased drainage from the wound admitted with diabetic ulcer and noted osteomylitis. * Diabetic wound infection with osteomylitis- Wound culture grew MRSA and proteus, continue Bactrim till 09/22, infectious disease input appreciated Peripheral arterial disease, dry gangrene of left lower extremity Vascular surgery input appreciated, he scheduled for outpatient angiogram on Blood pressure improved, continue current meds Acute blood loss anemia Blood counts have stabilized now improved Acute GI bleed Patient had episodes of coffee-ground emesis, status post EGD with no acute findings. Continue PPI Functional quadriplegia Continue supportive care History of CVA Continue aspirin and Plavix hypertensive urgency Bp better controlled, continue current meds Patient is planned for SNIF placement, case management on board History Interval history: denies pain, denies fever, denies chills Hospitalist Physical - Physical exam Narrative exam: General: Patient appears well in no distress HEENT: MMM, EOMI cardiac: S1-S2 heard lungs: clear to auscultation, abdomen: soft, nontender, nondistended bowel sounds positive extremities: R BKA, Left heel ulcer 2/1.5/.3, necrotic appearance, mild odor, tendon epxosed, bone is close to surface LLE has dry, shriveled, dry gangrenous appearance, poor pulses Skin: no rash or lesion Neuro: no focal deficit Psych: appropriate behavior and mood, cognition intact - Constitutional Vitals: Temp Pulse Resp BP Pulse Ox 98.6 F 70 18 131/74 94 09/05/16 00:00 09/05/16 00:00 09/05/16 00:00 09/05/16 13:51 09/05/16 00:00 General appearance: Present: no acute distress, obese Results - Labs CBC & Chem 7: 09/02/16 09:15 09/02/16 09:15 Labs: Laboratory Last Values WBC 3.4 K/mm3 (4.5-11.0) L 09/02/16 09:15 RBC 3.51 M/mm3 (3.65-5.03) L 09/02/16 09:15 Hgb 9.0 gm/dl (11.8-15.2) L 09/02/16 09:15 Hct 28.4 % (35.5-45.6) L 09/02/16 09:15 MCV 81 fl (84-94) L 09/02/16 09:15 MCH 26 pg (28-32) L 09/02/16 09:15 MCHC 32 % (32-34) 09/02/16 09:15 RDW 15.8 % (13.2-15.2) H 09/02/16 09:15 Plt Count 298 K/mm3 (140-440) 09/02/16 09:15 Lymph % (Auto) 12.7 % (13.4-35.0) L 08/28/16 06:46 [place] % (Auto) 8.2 % (0.0-7.3) H 08/28/16 06:46 Eos % (Auto) 2.3 % (0.0-4.3) 08/28/16 06:46 Baso % (Auto) 0.4 % (0.0-1.8) 08/28/16 06:46 Lymph # 0.9 K/mm3 (1.2-5.4) L 08/28/16 06:46 [place] # 0.6 K/mm3 (0.0-0.8) 08/28/16 06:46 Eos # 0.2 K/mm3 (0.0-0.4) 08/28/16 06:46 Baso # 0.0 K/mm3 (0.0-0.1) 08/28/16 06:46 Seg Neutrophils % 76.4 % (40.0-70.0) H 08/28/16 06:46 Seg Neutrophils # 5.2 K/mm3 (1.8-7.7) 08/28/16 06:46 PT 15.2 Sec. (12.2-14.9) H 08/27/16 19:24 INR 1.21 (0.87-1.13) H 08/27/16 19:24 VBG pH 7.393 (7.320-7.420) 08/27/16 20:04 Sodium 138 mmol/L (137-145) 09/02/16 09:15 Potassium 4.7 mmol/L (3.6-5.0) 09/02/16 09:15 Chloride 99.8 mmol/L (98-107) 09/02/16 09:15 Carbon Dioxide 29 mmol/L (22-30) 09/02/16 09:15 Anion Gap 14 mmol/L 09/02/16 09:15 BUN 12 mg/dL (9-20) 09/02/16 09:15 Creatinine 1.2 mg/dL (0.8-1.5) 09/02/16 09:15 Estimated GFR > 60 ml/min 09/02/16 09:15 BUN/Creatinine Ratio 10.00 % 09/02/16 09:15 Glucose 141 mg/dL (75-100) H 09/02/16 09:15 POC Glucose 296 (70-105) H 09/05/16 11:45 Lactic Acid 0.70 mmol/L (0.7-2.0) 08/27/16 21:20 Calcium 8.3 mg/dL (8.4-10.2) L 09/02/16 09:15 Iron 20 ug/dL (49-181) L 08/29/16 17:09 TIBC 116 mcg/dL (250-450) L 08/29/16 17:09 Ferritin 359.5 ng/mL (13.0-400.0) 08/29/16 17:09 Total Bilirubin 0.30 mg/dL (0.1-1.2) 08/27/16 18:34 AST 39 units/L (5-40) 08/27/16 18:34 ALT 17 units/L (7-56) 08/27/16 18:34 Alkaline Phosphatase 87 units/L (35-129) 08/27/16 18:34 Total Protein 7.9 g/dL (6.3-8.2) 08/27/16 18:34 Albumin 2.8 g/dL (3.9-5) L 08/27/16 18:34 Albumin/Globulin Ratio 0.5 % 08/27/16 18:34 Vitamin B12 273.1 pg/mL (211-911) 08/29/16 17:09 Vancomycin Trough 21.6 ug/mL (5.0-20.0) H 08/30/16 13:06 Blood Type O NEGATIVE 08/30/16 16:30 Antibody Screen TNR 08/30/16 16:30 FERMIN Antibody Screen Negative 08/30/16 16:30 Crossmatch See Detail 08/30/16 16:30
[2016-09-05] MEDS: LOVENOX SUB-Q SCH (22:21)
[2016-09-06] MEDS: NACL 0.9% 1000 ML 1,000 ML IV SCH ×2 (07:41→21:02)
[2016-09-06] MEDS: NOVOLOG SUB-Q SCH ×3 (07:48→16:45)
[2016-09-06] MEDS: PLAVIX PO SCH (10:35)
[2016-09-06] MEDS: VITAMIN D3 PO SCH (10:35)
[2016-09-06] MEDS: BABY ASPIRIN PO SCH (10:35)
[2016-09-06] MEDS: TRIPLE ANTIBIOTIC TP SCH (10:36)
[2016-09-06] MEDS: BACTRIM DS PO SCH ×2 (10:36→22:11)
[2016-09-06] MEDS: PROTONIX PO SCH (10:36)
[2016-09-06] MEDS: ZOCOR PO SCH (10:37)
[2016-09-06] MEDS: ZESTRIL PO SCH ×2 (10:46→22:10)
[2016-09-06] MEDS: CATAPRES PO SCH ×6 (10:49→20:59)
[2016-09-06] MEDS: PROCARDIA XL PO SCH (15:32)
[2016-09-06] MEDS: IMDUR PO SCH (15:32)
[2016-09-06 17:10] LABS: BUN/Creatinine Ratio 14.11; Chloride 99.2 mmol/L (98-107); Potassium 5.1 mmol/L (3.6-5.0)
[2016-09-06 17:14] LABS: Hemoglobin 8.7 gm/dl (11.8-15.2); Mean Corpuscular HGB Conc 32 % (32-34); Mean Corpuscular Hemoglobin 26 pg (28-32); Mean Corpuscular Volume 82 fl (84-94); Platelet Count 278 K/mm3 (140-440); Red Blood Count 3.29 M/mm3 (3.65-5.03); Red Cell Distribution Width 16.5 % (13.2-15.2); White Blood Count 3.1 K/mm3 (4.5-11.0)
--- NOTE | 2016-09-06 17:49 | Progress Note ---
Assessment and Plan Assessment and plan: 66-year-old man with history of hypertension, diabetes, right BKA, who has a chronic left ankle wound since 2016 comes emergency room because he is experiencing increased pain, increased drainage from the wound admitted with diabetic ulcer and noted osteomylitis. * Diabetic wound infection with osteomylitis- Wound culture grew MRSA and proteus, continue Bactrim till 09/22, infectious disease input appreciated Peripheral arterial disease, dry gangrene of left lower extremity Vascular surgery input appreciated, he scheduled for outpatient angiogram on Blood pressure improved, continue current meds Acute blood loss anemia Blood counts have stabilized now improved Acute GI bleed Patient had episodes of coffee-ground emesis, status post EGD with no acute findings. Continue PPI Functional quadriplegia Continue supportive care History of CVA Continue aspirin and Plavix hypertensive urgency Bp better controlled, continue current meds Acute kidney injury/hyperkalemia/hyponatremia Creatinine has increased today, most likely due to vasomotor nephropathy/ prerenal We'll give him some IV fluid trial, repeat labs tomorrow and if they are not improved we'll obtain nephrology consult and do renal ultrasound Patient is planned for SNIF placement, case management on board History Interval history: denies pain, denies fever, denies chills Hospitalist Physical - Physical exam Narrative exam: General: Patient appears well in no distress HEENT: MMM, EOMI cardiac: S1-S2 heard lungs: clear to auscultation, abdomen: soft, nontender, nondistended bowel sounds positive extremities: R BKA, Left heel ulcer 2/1.5/.3, necrotic appearance, mild odor, tendon epxosed, bone is close to surface LLE has dry, shriveled, dry gangrenous appearance, poor pulses Skin: no rash or lesion Neuro: no focal deficit Psych: appropriate behavior and mood, cognition intact - Constitutional Vitals: Temp Pulse Resp BP Pulse Ox 97.7 F 58 L 97 H 138/70 97 09/06/16 16:00 09/06/16 16:00 09/06/16 16:00 09/06/16 16:00 09/06/16 08:00 General appearance: Present: no acute distress, obese Results - Labs CBC & Chem 7: 09/06/16 16:14 09/06/16 16:14 Labs: Laboratory Last Values WBC 3.1 K/mm3 (4.5-11.0) L 09/06/16 16:14 RBC 3.29 M/mm3 (3.65-5.03) L 09/06/16 16:14 Hgb 8.7 gm/dl (11.8-15.2) L 09/06/16 16:14 Hct 27.0 % (35.5-45.6) L 09/06/16 16:14 MCV 82 fl (84-94) L 09/06/16 16:14 MCH 26 pg (28-32) L 09/06/16 16:14 MCHC 32 % (32-34) 09/06/16 16:14 RDW 16.5 % (13.2-15.2) H 09/06/16 16:14 Plt Count 278 K/mm3 (140-440) 09/06/16 16:14 Lymph % (Auto) 12.7 % (13.4-35.0) L 08/28/16 06:46 [place] % (Auto) 8.2 % (0.0-7.3) H 08/28/16 06:46 Eos % (Auto) 2.3 % (0.0-4.3) 08/28/16 06:46 Baso % (Auto) 0.4 % (0.0-1.8) 08/28/16 06:46 Lymph # 0.9 K/mm3 (1.2-5.4) L 08/28/16 06:46 [place] # 0.6 K/mm3 (0.0-0.8) 08/28/16 06:46 Eos # 0.2 K/mm3 (0.0-0.4) 08/28/16 06:46 Baso # 0.0 K/mm3 (0.0-0.1) 08/28/16 06:46 Seg Neutrophils % 76.4 % (40.0-70.0) H 08/28/16 06:46 Seg Neutrophils # 5.2 K/mm3 (1.8-7.7) 08/28/16 06:46 PT 15.2 Sec. (12.2-14.9) H 08/27/16 19:24 INR 1.21 (0.87-1.13) H 08/27/16 19:24 VBG pH 7.393 (7.320-7.420) 08/27/16 20:04 Sodium 135 mmol/L (137-145) L 09/06/16 16:14 Potassium 5.1 mmol/L (3.6-5.0) H 09/06/16 16:14 Chloride 99.2 mmol/L (98-107) 09/06/16 16:14 Carbon Dioxide 25 mmol/L (22-30) 09/06/16 16:14 Anion Gap 16 mmol/L 09/06/16 16:14 BUN 24 mg/dL (9-20) H 09/06/16 16:14 Creatinine 1.7 mg/dL (0.8-1.5) H 09/06/16 16:14 Estimated GFR 49 ml/min 09/06/16 16:14 BUN/Creatinine Ratio 14.11 % 09/06/16 16:14 Glucose 98 mg/dL (75-100) 09/06/16 16:14 POC Glucose 126 (70-105) H 09/06/16 16:31 Lactic Acid 0.70 mmol/L (0.7-2.0) 08/27/16 21:20 Calcium 8.0 mg/dL (8.4-10.2) L 09/06/16 16:14 Iron 20 ug/dL (49-181) L 08/29/16 17:09 TIBC 116 mcg/dL (250-450) L 08/29/16 17:09 Ferritin 359.5 ng/mL (13.0-400.0) 08/29/16 17:09 Total Bilirubin 0.30 mg/dL (0.1-1.2) 08/27/16 18:34 AST 39 units/L (5-40) 08/27/16 18:34 ALT 17 units/L (7-56) 08/27/16 18:34 Alkaline Phosphatase 87 units/L (35-129) 08/27/16 18:34 Total Protein 7.9 g/dL (6.3-8.2) 08/27/16 18:34 Albumin 2.8 g/dL (3.9-5) L 08/27/16 18:34 Albumin/Globulin Ratio 0.5 % 08/27/16 18:34 Vitamin B12 273.1 pg/mL (211-911) 08/29/16 17:09 Vancomycin Trough 21.6 ug/mL (5.0-20.0) H 08/30/16 13:06 Blood Type O NEGATIVE 08/30/16 16:30 Antibody Screen TNR 08/30/16 16:30 FERMIN Antibody Screen Negative 08/30/16 16:30 Crossmatch See Detail 08/30/16 16:30
[2016-09-06] MEDS: LOVENOX SUB-Q SCH (22:10)
[2016-09-07] MEDS: NOVOLOG SUB-Q SCH ×5 (00:11→21:34)
[2016-09-07] MEDS: NACL 0.9% 1000 ML 1,000 ML IV SCH ×3 (03:16→18:07)
[2016-09-07 07:10] LABS: BUN/Creatinine Ratio 13.33; Calcium 8.4 mg/dL (8.4-10.2); Chloride 101.2 mmol/L (98-107); Potassium 5.2 mmol/L (3.6-5.0)
[2016-09-07] MEDS: CATAPRES PO SCH ×6 (08:33→21:20)
--- NOTE | 2016-09-07 09:32 | Progress Note ---
Assessment and Plan Assessment and plan: 66-year-old man with history of hypertension, diabetes, right BKA, who has a chronic left ankle wound since 2016 comes emergency room because he is experiencing increased pain, increased drainage from the wound admitted with diabetic ulcer and noted osteomylitis. * Diabetic wound infection with osteomylitis- Wound culture grew MRSA and proteus, continue Bactrim till 09/22, infectious disease input appreciated Peripheral arterial disease, dry gangrene of left lower extremity Vascular surgery input appreciated, he scheduled for outpatient angiogram on Blood pressure improved, continue current meds Acute blood loss anemia Blood counts have stabilized now improved Acute GI bleed Patient had episodes of coffee-ground emesis, status post EGD with no acute findings. Continue PPI Functional quadriplegia Continue supportive care History of CVA Continue aspirin and Plavix hypertensive urgency Bp better controlled, continue current meds Acute kidney injury/hyperkalemia/hyponatremia Creatinine has increased today, most likely due to vasomotor nephropathy/ prerenal improved with iVF kaxeyalate x 1 today Patient is planned for SNIF placement, case management on board History Interval history: denies pain, denies fever, denies chills Hospitalist Physical - Physical exam Narrative exam: General: Patient appears well in no distress HEENT: MMM, EOMI cardiac: S1-S2 heard lungs: clear to auscultation, abdomen: soft, nontender, nondistended bowel sounds positive extremities: R BKA, Left heel ulcer 2/1.5/.3, necrotic appearance, mild odor, tendon epxosed, bone is close to surface LLE has dry, shriveled, dry gangrenous appearance, poor pulses Skin: no rash or lesion Neuro: no focal deficit Psych: appropriate behavior and mood, cognition intact - Constitutional Vitals: Temp Pulse Resp BP Pulse Ox 97.7 F 63 97 H 187/85 97 09/06/16 16:00 09/06/16 22:10 09/06/16 16:00 09/07/16 08:33 09/06/16 08:00 General appearance: Present: no acute distress, obese Results - Labs CBC & Chem 7: 09/06/16 16:14 09/07/16 06:04 Labs: Laboratory Last Values WBC 3.1 K/mm3 (4.5-11.0) L 09/06/16 16:14 RBC 3.29 M/mm3 (3.65-5.03) L 09/06/16 16:14 Hgb 8.7 gm/dl (11.8-15.2) L 09/06/16 16:14 Hct 27.0 % (35.5-45.6) L 09/06/16 16:14 MCV 82 fl (84-94) L 09/06/16 16:14 MCH 26 pg (28-32) L 09/06/16 16:14 MCHC 32 % (32-34) 09/06/16 16:14 RDW 16.5 % (13.2-15.2) H 09/06/16 16:14 Plt Count 278 K/mm3 (140-440) 09/06/16 16:14 Lymph % (Auto) 12.7 % (13.4-35.0) L 08/28/16 06:46 [place] % (Auto) 8.2 % (0.0-7.3) H 08/28/16 06:46 Eos % (Auto) 2.3 % (0.0-4.3) 08/28/16 06:46 Baso % (Auto) 0.4 % (0.0-1.8) 08/28/16 06:46 Lymph # 0.9 K/mm3 (1.2-5.4) L 08/28/16 06:46 [place] # 0.6 K/mm3 (0.0-0.8) 08/28/16 06:46 Eos # 0.2 K/mm3 (0.0-0.4) 08/28/16 06:46 Baso # 0.0 K/mm3 (0.0-0.1) 08/28/16 06:46 Seg Neutrophils % 76.4 % (40.0-70.0) H 08/28/16 06:46 Seg Neutrophils # 5.2 K/mm3 (1.8-7.7) 08/28/16 06:46 PT 15.2 Sec. (12.2-14.9) H 08/27/16 19:24 INR 1.21 (0.87-1.13) H 08/27/16 19:24 VBG pH 7.393 (7.320-7.420) 08/27/16 20:04 Sodium 135 mmol/L (137-145) L 09/07/16 06:04 Potassium 5.2 mmol/L (3.6-5.0) H 09/07/16 06:04 Chloride 101.2 mmol/L (98-107) 09/07/16 06:04 Carbon Dioxide 22 mmol/L (22-30) 09/07/16 06:04 Anion Gap 17 mmol/L 09/07/16 06:04 BUN 20 mg/dL (9-20) 09/07/16 06:04 Creatinine 1.5 mg/dL (0.8-1.5) 09/07/16 06:04 Estimated GFR 57 ml/min 09/07/16 06:04 BUN/Creatinine Ratio 13.33 % 09/07/16 06:04 Glucose 76 mg/dL (75-100) 09/07/16 06:04 POC Glucose 74 (70-105) 09/06/16 22:38 Lactic Acid 0.70 mmol/L (0.7-2.0) 08/27/16 21:20 Calcium 8.4 mg/dL (8.4-10.2) 09/07/16 06:04 Iron 20 ug/dL (49-181) L 08/29/16 17:09 TIBC 116 mcg/dL (250-450) L 08/29/16 17:09 Ferritin 359.5 ng/mL (13.0-400.0) 08/29/16 17:09 Total Bilirubin 0.30 mg/dL (0.1-1.2) 08/27/16 18:34 AST 39 units/L (5-40) 08/27/16 18:34 ALT 17 units/L (7-56) 08/27/16 18:34 Alkaline Phosphatase 87 units/L (35-129) 08/27/16 18:34 Total Protein 7.9 g/dL (6.3-8.2) 08/27/16 18:34 Albumin 2.8 g/dL (3.9-5) L 08/27/16 18:34 Albumin/Globulin Ratio 0.5 % 08/27/16 18:34 Vitamin B12 273.1 pg/mL (211-911) 08/29/16 17:09 Vancomycin Trough 21.6 ug/mL (5.0-20.0) H 08/30/16 13:06 Blood Type O NEGATIVE 08/30/16 16:30 Antibody Screen TNR 08/30/16 16:30 FERMIN Antibody Screen Negative 08/30/16 16:30 Crossmatch See Detail 08/30/16 16:30
[2016-09-07] MEDS ORDERED: KIONEX PO ONE (10:00)
[2016-09-07] MEDS: PROCARDIA XL PO SCH (10:17)
[2016-09-07] MEDS: PLAVIX PO SCH (10:17)
[2016-09-07] MEDS: VITAMIN D3 PO SCH (10:17)
[2016-09-07] MEDS: IMDUR PO SCH (10:17)
[2016-09-07] MEDS: BACTRIM DS PO SCH ×2 (10:17→21:21)
[2016-09-07] MEDS: ZESTRIL PO SCH ×2 (10:17→21:22)
[2016-09-07] MEDS: ZOCOR PO SCH (10:17)
[2016-09-07] MEDS: PROTONIX PO SCH (10:17)
[2016-09-07] MEDS: TRIPLE ANTIBIOTIC TP SCH (10:18)
[2016-09-07] MEDS: BABY ASPIRIN PO SCH (10:18)
--- NOTE | 2016-09-07 12:03 | Progress Note ---
Assessment and Plan She was scheduled for an arteriogram to improve the chances of wound healing of his left lower portion wounds earlier this hospitalization. Due to a heavy procedural schedule the case was delayed. The patient was for discharge last week, with plans to follow-up in our office as an outpatient for his procedure. Delays from his insurance company have resulted in the patient remaining hospitalized. If the patient remains hospitalized him a week will add him on for an arteriogram, and possible left lower extremity intervention tomorrow. Would not recommend waiting an additional 2 weeks for this to be performed as an outpatient. - Patient Problems (1) Atherosclerosis of [place] arteries of the extremities with ulceration Current Visit: Yes Status: Acute Subjective Date of service: 09/07/16 Principal diagnosis: anemia Interval history: Patient is awake without complaint at present. Objective - Constitutional Vitals: Vital Signs - 12hr 09/07/16 08:33 Blood Pressure 187/85 General appearance: Present: no acute distress - EENT Eyes: EOM intact ENT: hearing intact - Respiratory Respiratory effort: normal Extremities: abnormal (left lower leg wounds are bandaged (changed earlier this morning).) - Neurologic Neurologic: no focal deficits - Psychiatric Psychiatric: appropriate mood/affect, cooperative - Labs CBC & Chem 7: 09/06/16 16:14 09/07/16 06:04 Labs: Abnormal lab results 09/06/16 09/06/16 09/06/16 Range/Units 16:14 16:14 16:31 WBC 3.1 L (4.5-11.0) K/mm3 RBC 3.29 L (3.65-5.03) M/mm3 Hgb 8.7 L (11.8-15.2) gm/dl Hct 27.0 L (35.5-45.6) % MCV 82 L (84-94) fl MCH 26 L (28-32) pg RDW 16.5 H (13.2-15.2) % Sodium 135 L (137-145) mmol/L Potassium 5.1 H (3.6-5.0) mmol/L BUN 24 H (9-20) mg/dL Creatinine 1.7 H (0.8-1.5) mg/dL POC Glucose 126 H (70-105) Calcium 8.0 L (8.4-10.2) mg/dL 09/07/16 Range/Units 06:04 WBC (4.5-11.0) K/mm3 RBC (3.65-5.03) M/mm3 Hgb (11.8-15.2) gm/dl Hct (35.5-45.6) % MCV (84-94) fl MCH (28-32) pg RDW (13.2-15.2) % Sodium 135 L (137-145) mmol/L Potassium 5.2 H (3.6-5.0) mmol/L BUN (9-20) mg/dL Creatinine (0.8-1.5) mg/dL POC Glucose (70-105) Calcium (8.4-10.2) mg/dL
[2016-09-07] MEDS: LOVENOX SUB-Q SCH (21:21)
[2016-09-08] MEDS: NACL 0.9% 1000 ML 1,000 ML IV SCH ×3 (02:19→22:02)
[2016-09-08] MEDS: CATAPRES PO SCH ×6 (08:00→22:50)
[2016-09-08] MEDS ORDERED: ANCEF/STERILE WATER 2 GM/20 ML 2 GM/20 ML SYRINGE IV NR (08:00)
[2016-09-08] MEDS: NOVOLOG SUB-Q SCH ×4 (09:25→22:52)
[2016-09-08] MEDS ORDERED: XYLOCAINE 2% INFILTRATI ONE (09:37)
[2016-09-08] MEDS ORDERED: HEPARIN 10,000 UNITS/10 ML ONE (09:37)
[2016-09-08] MEDS ORDERED: NACL 0.9% 500 ML 500 ML ONE (09:37)
[2016-09-08] MEDS ORDERED: HEPARIN/NS 5000 UNIT/500ML(CATH LAB) 1,000 ML IR ONE (09:37)
[2016-09-08] MEDS ORDERED: VANCOMYCIN/NS 1 GM/250 ML 1 GM/250 ML BAG IV ONE (09:38)
[2016-09-08] MEDS: VERSED ONE ×3 (10:15→10:58)
[2016-09-08] MEDS: SUBLIMAZE ONE ×4 (10:15→10:59)
--- NOTE | 2016-09-08 12:09 | Operative Report ---
Operative Report Operative Report: Date of Procedure: 09/08/2016 Pre-operative Diagnosis: PVD with Left Leg Nonhealing Ulcers Post-operative Diagnosis: Same Procedure(s): 1. Ultrasound-Guided Access Right Common Femoral Artery 2. Diagnostic Aortogram and Left Lower Extremity Arteriogram (No Previous Films for Comparison) 3. Angioplasty of Left Anterior Tibial Artery with Tapered 3.5-3.0 x 210 [place]ann[place]ross Balloon 4. Angioplasty of Left Peroneal Artery with Tapered 3.5-3.0 x 210 [place]ann[place]ross Balloon 5. Closed Right Femoral Arteriotomy with 6 Trin[place] Angio-Seal 6. Radiologic Supervision with Interpretation Surgeon: Delta Dennis M.D. Compounder Flavorings: Bo Anesthesia: Local and IV sedation EBL: Minimal Counts: Correct Complications: None Condition: Stable Specimen: None Indication: The patient is a 66-year-old male with a history of peripheral vascular disease and a previous right below-knee amputation. He has had a lateral ankle wound on his left lower extremity that has not healed for months. An ultrasound demonstrated monophasic flow in his tibial vessels. It was felt that he would need revascularization of his left lower extremity to improve his chances of healing his wound. He was given the risk, benefits, and alternative procedures and consented to procedure. Angiographic Findings: The aortogram demonstrated aorta is widely patent without any significant stenosis with a patent right common iliac artery. The patient's left lower extremity arteriogram demonstrated the common iliac, hypogastric, and external iliac were all widely patent. The common femoral, profunda, SFA, and popliteal arteries were all widely patent. The anterior tibial artery had 80% stenosis in the proximal portion of the artery and was occluded shortly after the stenosis with reconstitution of the dorsalis pedis artery in the foot. The patient's tibioperoneal trunk was patent however the origin of the peroneal artery in the posterior tibial arteries were both occluded and the patient have reconstitution of the posterior tibial artery and short floating segments and the leg and then at the ankle and the artery continued into the foot. The peroneal artery appeared to have reconstitution in the distal portion of the artery. After intervention the anterior tibial artery was patent with less than 10% residual stenosis. The peroneal artery was patent with less than 20% residual stenosis. Description of Procedure: The patient was brought to the lab aid and laid in supine position. After he was adequately sedated his records prepped and draped in normal sterile fashion. Ultrasound was used to identify the right common femoral artery and overlying skin and soft tissue was anesthetized with lidocaine. A small stab incision was made and the micropuncture technique was used to access the artery. A 5 [place] sheath was then placed also under technique. An Omni Flush catheter was advanced into the distal aorta and aortogram was performed. The Omni Flush catheter and Bentson wire was advanced up and over the bifurcation and the left lower extremity arteriogram was performed previously described findings. I advanced the catheter and Bentson wire down into the popliteal artery and then the 5 [place] sheath was exchanged for a 6 [place] 90 cm destination sheath by Seldinger technique. At this point the patient was systemically heparinized. I was able to cannulate the anterior tibial artery using a V18 wire and the Navicross catheter. Was eventually able to traverse the occluded anterior tibial artery and reentered in the dorsalis pedis artery using a 0.035 Advantage wire and the Navicross catheter. Arteriogram performed to confirm entry of the dorsalis pedis artery. I exchanged the advantage wire for a 0.014 Choice PT wire and then perform balloon angioplasty of the anterior tibial artery using the Tapered 3.5-3.0 x 210 [place]ann[place]ross Balloon. The result was a patent artery with less than 10% residual stenosis and brisk flow of contrast into the foot. I then reinserted the Navicross catheter and exchanged the 0.014 wire for the 0.035 Advantage wire. I was able to cannulate the peroneal artery and advanced a catheter wire down into the distal portion of the artery. I exchanged the 0.035 wire for the 0.014 Choice PT wire and performed balloon angioplasty of the peroneal artery using the Tapered 3.5-3.0 x 210 [place] Balloon. Follow-up arteriogram demonstrated sluggish flow which after multiple views eventually demonstrated approximately 90% stenosis of the origin of the peroneal artery. I performed balloon angioplasty of the aorta with a 4 x 40 balloon with the result of a widely patent origin and the remainder of the artery with less than 20% stenosis and brisk flow through the artery. I made multiple attempts to identify the origin of the posterior tibial artery without success. At this point I felt that 2 vessels were adequate for healing of his wound. I pulled the sheath back into the right external iliac artery and then advanced a Bentson wire into the aorta. I then used a 6 [place] Angio-Seal for closure of the right femoral arteriotomy. The patient tolerated the procedure well. All sponge, needle, and estimate counts were correct. The patient was taken to the recovery area in stable condition.
[2016-09-08] MEDS: BABY ASPIRIN PO SCH (13:02)
[2016-09-08] MEDS: PROCARDIA XL PO SCH (13:02)
[2016-09-08] MEDS: BACTRIM DS PO SCH ×2 (13:02→22:09)
[2016-09-08] MEDS: PROTONIX PO SCH (13:02)
[2016-09-08] MEDS: PLAVIX PO SCH (13:03)
[2016-09-08] MEDS: IMDUR PO SCH (13:03)
[2016-09-08] MEDS: VITAMIN D3 PO SCH (13:03)
[2016-09-08] MEDS: ZOCOR PO SCH (13:04)
[2016-09-08] MEDS: TRIPLE ANTIBIOTIC TP SCH (13:11)
[2016-09-08] MEDS: ZESTRIL PO SCH ×2 (13:14→22:09)
--- NOTE | 2016-09-08 16:50 | Progress Note ---
Assessment and Plan Assessment and plan: 66-year-old man with history of hypertension, diabetes, right BKA, who has a chronic left ankle wound since 2016 comes emergency room because he is experiencing increased pain, increased drainage from the wound admitted with diabetic ulcer and noted osteomylitis. * Diabetic wound infection with osteomylitis- Wound culture grew MRSA and proteus, continue Bactrim till 09/22, infectious disease input appreciated Peripheral arterial disease, dry gangrene of left lower extremity Vascular surgery input appreciated, sp angioplasty of left anterior tibial and left peroneal artery on 09/08, some bleeding at the site will hold compression and monitor overnight Blood pressure improved, continue current meds Acute blood loss anemia Blood counts have stabilized now improved Acute GI bleed Patient had episodes of coffee-ground emesis, status post EGD with no acute findings. Continue PPI Functional quadriplegia Continue supportive care History of CVA Continue aspirin and Plavix hypertensive urgency Bp better controlled, continue current meds Acute kidney injury/hyperkalemia/hyponatremia Creatinine has increased today, most likely due to vasomotor nephropathy/ prerenal improved with iVF kaxeyalate x 1 today Patient is planned for SNIF placement, case management on board History Interval history: denies pain, denies fever, denies chills, he is sp angioplasty to LLE and has some bleeding from site Hospitalist Physical - Physical exam Narrative exam: General: Patient appears well in no distress HEENT: MMM, EOMI cardiac: S1-S2 heard lungs: clear to auscultation, abdomen: soft, nontender, nondistended bowel sounds positive extremities: R BKA, Left heel ulcer 2/1.5/.3, necrotic appearance, mild odor, tendon epxosed, bone is close to surface LLE has dry, shriveled, dry gangrenous appearance, poor pulses Skin: no rash or lesion Neuro: no focal deficit Psych: appropriate behavior and mood, cognition intact - Constitutional Vitals: Temp Pulse Resp BP Pulse Ox 98 F 66 16 160/90 97 09/08/16 16:00 09/08/16 16:00 09/08/16 16:00 09/08/16 16:00 09/08/16 08:00 General appearance: Present: no acute distress, obese Results - Labs CBC & Chem 7: 09/06/16 16:14 09/07/16 06:04 Labs: Laboratory Last Values WBC 3.1 K/mm3 (4.5-11.0) L 09/06/16 16:14 RBC 3.29 M/mm3 (3.65-5.03) L 09/06/16 16:14 Hgb 8.7 gm/dl (11.8-15.2) L 09/06/16 16:14 Hct 27.0 % (35.5-45.6) L 09/06/16 16:14 MCV 82 fl (84-94) L 09/06/16 16:14 MCH 26 pg (28-32) L 09/06/16 16:14 MCHC 32 % (32-34) 09/06/16 16:14 RDW 16.5 % (13.2-15.2) H 09/06/16 16:14 Plt Count 278 K/mm3 (140-440) 09/06/16 16:14 Lymph % (Auto) 12.7 % (13.4-35.0) L 08/28/16 06:46 [place] % (Auto) 8.2 % (0.0-7.3) H 08/28/16 06:46 Eos % (Auto) 2.3 % (0.0-4.3) 08/28/16 06:46 Baso % (Auto) 0.4 % (0.0-1.8) 08/28/16 06:46 Lymph # 0.9 K/mm3 (1.2-5.4) L 08/28/16 06:46 [place] # 0.6 K/mm3 (0.0-0.8) 08/28/16 06:46 Eos # 0.2 K/mm3 (0.0-0.4) 08/28/16 06:46 Baso # 0.0 K/mm3 (0.0-0.1) 08/28/16 06:46 Seg Neutrophils % 76.4 % (40.0-70.0) H 08/28/16 06:46 Seg Neutrophils # 5.2 K/mm3 (1.8-7.7) 08/28/16 06:46 PT 15.2 Sec. (12.2-14.9) H 08/27/16 19:24 INR 1.21 (0.87-1.13) H 08/27/16 19:24 VBG pH 7.393 (7.320-7.420) 08/27/16 20:04 Sodium 135 mmol/L (137-145) L 09/07/16 06:04 Potassium 5.2 mmol/L (3.6-5.0) H 09/07/16 06:04 Chloride 101.2 mmol/L (98-107) 09/07/16 06:04 Carbon Dioxide 22 mmol/L (22-30) 09/07/16 06:04 Anion Gap 17 mmol/L 09/07/16 06:04 BUN 20 mg/dL (9-20) 09/07/16 06:04 Creatinine 1.5 mg/dL (0.8-1.5) 09/07/16 06:04 Estimated GFR 57 ml/min 09/07/16 06:04 BUN/Creatinine Ratio 13.33 % 09/07/16 06:04 Glucose 76 mg/dL (75-100) 09/07/16 06:04 POC Glucose 109 (70-105) H 09/08/16 12:08 Lactic Acid 0.70 mmol/L (0.7-2.0) 08/27/16 21:20 Calcium 8.4 mg/dL (8.4-10.2) 09/07/16 06:04 Iron 20 ug/dL (49-181) L 08/29/16 17:09 TIBC 116 mcg/dL (250-450) L 08/29/16 17:09 Ferritin 359.5 ng/mL (13.0-400.0) 08/29/16 17:09 Total Bilirubin 0.30 mg/dL (0.1-1.2) 08/27/16 18:34 AST 39 units/L (5-40) 08/27/16 18:34 ALT 17 units/L (7-56) 08/27/16 18:34 Alkaline Phosphatase 87 units/L (35-129) 08/27/16 18:34 Total Protein 7.9 g/dL (6.3-8.2) 08/27/16 18:34 Albumin 2.8 g/dL (3.9-5) L 08/27/16 18:34 Albumin/Globulin Ratio 0.5 % 08/27/16 18:34 Vitamin B12 273.1 pg/mL (211-911) 08/29/16 17:09 Vancomycin Trough 21.6 ug/mL (5.0-20.0) H 08/30/16 13:06 Blood Type O NEGATIVE 08/30/16 16:30 Antibody Screen TNR 08/30/16 16:30 FERMIN Antibody Screen Negative 08/30/16 16:30 Crossmatch See Detail 08/30/16 16:30
[2016-09-08] MEDS: LOVENOX SUB-Q SCH (22:03)
[2016-09-09] MEDS: NACL 0.9% 1000 ML 1,000 ML IV SCH ×2 (03:22→10:56)
[2016-09-09] MEDS ORDERED: D50W (25GM) IV ONE ×2 (06:31→06:35)
--- NOTE | 2016-09-09 07:34 | Vascular Lab Report ---
MISCELLANEOUS VESSEL IDENTIFICATION: COMMENTS ON THE SCAN: The right common femoral artery was identified and under real-time ultrasound guidance was cannulated. IMPRESSION: Successful ultrasound guided arterial cannulation.
--- NOTE | 2016-09-09 09:13 | Progress Note ---
Assessment and Plan - Patient Problems (1) Osteomyelitis of ankle Current Visit: Yes Status: Acute Qualifiers: Osteomyelitis type: unspecified type Laterality: left Qualified Code(s): M86.9 - Osteomyelitis, unspecified Plan to address problem: 1. Bactrim and topical antibiotics through September 22, 2016. 2. If there is significant wound healing and closure, this duration can be extended to treat underlying osteomyelitis. Further management per the wound clinic. (2) Lower limb ulcer Current Visit: Yes Status: Acute Qualifiers: Laterality: left Non-pressure ulcer stage: unspecified non-pressure ulcer stage Qualified Code(s): L97.929 - Non-pressure chronic ulcer of unspecified part of left lower leg with unspecified severity Plan to address problem: Wound off-loading. (3) Leukopenia Current Visit: Yes Status: Acute Qualifiers: Leukopenia type: L Neutropenia type: N Plan to address problem: Following, especially while on Bactrim. Remains stable presently. Subjective Date of service: 09/09/16 Principal diagnosis: Left Ankle Ulcer Interval history: Patient underwent angioplasty at left leg yesterday. Has remained afebrile, stable. Objective - Constitutional Vitals: Vital Signs Temp Pulse Resp BP Pulse Ox 97.9 F 72 16 137/79 97 09/09/16 00:00 09/09/16 07:51 09/09/16 07:51 09/09/16 00:00 09/08/16 08:00 Temperature -Last 24 Hours Temperature 97.9 F Temperature 98 F Temperature 98.1 F General appearance: Present: no acute distress, obese - Respiratory Respiratory effort: normal Respiratory: bilateral: CTA - Cardiovascular Rhythm: regular Heart Sounds: Present: S1 & S2 Extremity abnormal: other (clean-based left ankle wound with a small amount of serous drainage and a small area of adherent slough, no odor; right inguinal site without bleeding or drainage) - Gastrointestinal General gastrointestinal: Present: soft, non-distended - Integumentary Integumentary: no rash - Neurologic Neurologic: moves all extremities, other (mild dysarthria) - Psychiatric Psychiatric: appropriate mood/affect - Labs CBC & Chem 7: 09/09/16 08:52 09/07/16 06:04 Labs: Abnormal lab results 09/08/16 09/08/16 09/09/16 Range/Units 12:08 21:20 06:06 POC Glucose 109 H 118 H 54 L (70-105) 09/09/16 09/09/16 Range/Units 06:25 06:47 POC Glucose 53 L 164 H (70-105) Microbiology 08/27/16 19:24 Peripheral/Venous Blood Culture - Final NO GROWTH AFTER 5 DAYS 08/27/16 19:24 Peripheral/Venous Blood Culture - Final NO GROWTH AFTER 5 DAYS 08/27/16 20:04 Peripheral/Venous Blood Culture - Final NO GROWTH AFTER 5 DAYS 08/27/16 18:34 Peripheral/Venous Blood Culture - Final NO GROWTH AFTER 5 DAYS 08/27/16 18:40 Foot - Left Wound Culture - Final Proteus Mirabilis Methicillin Resist S. Aureus
[2016-09-09 09:22] LABS: Hematocrit 27.2 % (35.5-45.6); Hemoglobin 8.8 gm/dl (11.8-15.2)
[2016-09-09] MEDS: NOVOLOG SUB-Q SCH ×2 (09:25→13:11)
[2016-09-09] MEDS: CATAPRES PO SCH ×4 (09:41→15:17)
[2016-09-09] MEDS: PROCARDIA XL PO SCH (10:54)
[2016-09-09] MEDS: BABY ASPIRIN PO SCH (10:54)
[2016-09-09] MEDS: BACTRIM DS PO SCH (10:54)
[2016-09-09] MEDS: IMDUR PO SCH (10:54)
[2016-09-09] MEDS: PLAVIX PO SCH (10:55)
[2016-09-09] MEDS: ZOCOR PO SCH (10:55)
[2016-09-09] MEDS: VITAMIN D3 PO SCH (10:55)
[2016-09-09] MEDS: TRIPLE ANTIBIOTIC TP SCH (10:55)
[2016-09-09] MEDS: PROTONIX PO SCH (10:55)
[2016-09-09] MEDS: ZESTRIL PO SCH (10:55)
--- NOTE | 2016-09-09 15:10 | Progress Note ---
Assessment and Plan Patient is status post left lower extremity revascularization. Postoperatively the patient developed bleeding from the right groin. This did not appear to be arterial bleeding, more likely from a skin tract vessel ( probably as a result of antiplatelet medications). An additional 30 minutes of manual pressure resulted in hemostasis. The patient was observed overnight with no further signs of bleeding. His hemoglobin has remained stable. A limited right groin arterial ultrasound shows no evidence of pseudoaneurysm formation. Okay to discharge from a vascular standpoint once cleared medically. He should follow up in our office in 1-2 weeks, and call for an appointment. - Patient Problems (1) Atherosclerosis of [place] arteries of the extremities with ulceration Current Visit: Yes Status: Acute Subjective Date of service: 09/09/16 Principal diagnosis: Left Ankle Ulcer Interval history: Patient is awake and alert without specific complaints at present. Objective - Constitutional Vitals: Vital Signs - 12hr 09/09/16 09/09/16 09/09/16 07:00 07:51 09:41 Temperature 98.6 F Pulse Rate Pulse Rate [ 71 72 Right Radial] Respiratory 20 16 Rate Blood Pressure 195/98 Blood Pressure 195/98 [Right Arm] 09/09/16 09/09/16 09/09/16 09:42 10:54 10:55 Temperature Pulse Rate 72 70 70 Pulse Rate [ Right Radial] Respiratory Rate Blood Pressure 195/98 175/83 175/83 Blood Pressure [Right Arm] General appearance: Present: no acute distress - EENT Eyes: EOM intact ENT: hearing intact - Respiratory Respiratory effort: normal Extremities: no ischemia (left foot is hot, wounds are bandaged.), abnormal ( right groin is soft, bandages placed last night have no signs of subsequent bleeding.) - Psychiatric Psychiatric: appropriate mood/affect, cooperative - Additional findings Additional findings: Preliminary vascular lab ultrasound shows no evidence of right groin pseudoaneurysm - Labs CBC & Chem 7: 09/09/16 08:52 09/07/16 06:04 Labs: Abnormal lab results 09/08/16 09/09/16 09/09/16 Range/Units 21:20 06:06 06:25 Hgb (11.8-15.2) gm/dl Hct (35.5-45.6) % POC Glucose 118 H 54 L 53 L (70-105) 06/28/17 06/28/17 Range/Units 06:47 08:52 Hgb 8.8 L (11.8-15.2) gm/dl Hct 27.2 L (35.5-45.6) % POC Glucose 164 H (70-105)
[2016-09-09 15:17] VITALS: BP 141/75
--- NOTE | 2016-09-09 18:01 | Vascular Lab Report ---
LOWER EXTREMITY ARTERIAL DUPLEX: REASON FOR EXAM: Right groin swelling. COMMENTS ON THE RIGHT: Biphasic waveforms are seen proximally. Biphasic waveforms are seen distally. No evidence of false aneurysm or hematoma in the right groin. No focal significant plaque is identified. IMPRESSION: RIGHT: No evidence of false aneurysm in the right groin. .
== END 2016-09-09 16:10 | DRG 252 ==
LOC: ED 17:04 → 3A 23:39
PROVIDERS: ADMIT Internal Medicine; ATTEND Internal Medicine
PROC: 0DJ08ZZ Inspection of Upper Intestinal Tract, Via Natural or Artificial Opening Endoscopic (ICD-10-PCS; principal; 2016-09-01)
PROC: 047Q3ZZ Dilation of Left Anterior Tibial Artery, Percutaneous Approach (ICD-10-PCS; 2016-09-08)
PROC: 047U3ZZ Dilation of Left Peroneal Artery, Percutaneous Approach (ICD-10-PCS; 2016-09-08)
PROC: B41G1ZZ Fluoroscopy of Left Lower Extremity Arteries using Low Osmolar Contrast (ICD-10-PCS; 2016-09-08)
PROC: B41D1ZZ Fluoroscopy of Aorta and Bilateral Lower Extremity Arteries using Low Osmolar Contrast (ICD-10-PCS; 2016-09-08)
DX: E11.52 Type 2 diabetes mellitus with diabetic peripheral angiopathy with gangrene (principal); R53.2 Functional quadriplegia; N17.0 Acute kidney failure with tubular necrosis; M86.172 Other acute osteomyelitis, left ankle and foot; K92.2 Gastrointestinal hemorrhage, unspecified; D62 Acute posthemorrhagic anemia; L97.929 Non-pressure chronic ulcer of unspecified part of left lower leg with unspecified severity; L03.116 Cellulitis of left lower limb; E87.1 Hypo-osmolality and hyponatremia; E11.69 Type 2 diabetes mellitus with other specified complication; E11.621 Type 2 diabetes mellitus with foot ulcer; I70.248 Atherosclerosis of native arteries of left leg with ulceration of other part of lower leg; E87.5 Hyperkalemia; B95.62 Methicillin resistant Staphylococcus aureus infection as the cause of diseases classified elsewhere; I16.0 Hypertensive urgency; F03.90 Unspecified dementia, unspecified severity, without behavioral disturbance, psychotic disturbance, mood disturbance, and anxiety; I12.9 Hypertensive chronic kidney disease with stage 1 through stage 4 chronic kidney disease, or unspecified chronic kidney disease; N18.9 Chronic kidney disease, unspecified; E66.9 Obesity, unspecified; K44.9 Diaphragmatic hernia without obstruction or gangrene; D72.819 Decreased white blood cell count, unspecified; Z89.511 Acquired absence of right leg below knee; Z86.73 Personal history of transient ischemic attack (TIA), and cerebral infarction without residual deficits; Z89.412 Acquired absence of left great toe; Z83.3 Family history of diabetes mellitus; Z91.013 Allergy to seafood; Z68.29 Body mass index [BMI] 29.0-29.9, adult; Z82.49 Family history of ischemic heart disease and other diseases of the circulatory system
CPT/HCPCS: 36415; 37228; 37232; 71010; 75625; 75710; 76937; 80048; 80053; 80202; 82140; 82607; 82728; 82805; 82962; 83550; 85014; 85018; 85025; 85027; 85610; 86850; 86900; 86901; 86920; 87040; 87076; 87116; 87186; 93005; 93010; 96365; 96375; A6250; C1725; C1760; C1769; C1887; C1894; C9113; G8978-GP; G8979-GP; J0360; J0690; J0696; J1644; J1650; J1815; J2250; J2405; J2704; J3010; J3370; J7030; J7040; J7050; Q9967